=== PATIENT | female | born 1950 | race Caucasian/White ===

== ENCOUNTER 2016-11-12 14:43 | Emergency (ER) | payer OTHER ==
[2016-11-12 14:56] VITALS: TEMP 97.5; BMI 29.1
[2016-11-12] MEDS ORDERED: guaiFENesin/CODEINE 5 ML UNIT-DOSE CUPS PO PRN (17:19)
[2016-11-12] MEDS ORDERED: SODIUM CHLORIDE 1,000 ML IV STA (17:20)
[2016-11-12] MEDS ORDERED: ACETAMINOPHEN 325 MG TABLET (FP) PO ONE (17:20)
--- NOTE | 2016-11-12 17:24 | PDOC ---
[id number] Associated Symptoms: reports: chest pain, cough, fever/chills, headaches, malaise, shortness of breath. denies: nausea/vomiting <D[place]ast[place]Shahla - Last Filed: 11/12/16 18:59> <Sundepe Florence - Last Filed: 11/12/16 20:45> <Licha Pierce - Last Filed: 11/13/16 19:24> - General Chief Complaint: Shortness of Breath Stated Complaint: CHEST PAIN Time Seen by Provider: 11/12/16 16:32 Past History - Past Medical History GI Disorders: Yes (GERD) Hypercholesterolemia: Yes - Surgical History Cholecystectomy: Yes - Psycho/Social/Smoking Cessation Hx Anxiety: No Suicidal Ideation: No Smoking Status: No Smoking History: Never smoked Have you smoked in the past 12 months: No Number of Cigarettes Smoked Daily: 0 Information on smoking cessation initiated: No Hx Alcohol Use: No Drug/Substance Use Hx: No Substance Use Type: None <[place] - Last Filed: 11/12/16 18:59> <Sundeep Florence - Last Filed: 11/12/16 20:45> <Licha Pierce - Last Filed: 11/13/16 19:24> - Past Medical History Allergies/Adverse Reactions: Allergies Allergy/AdvReac Type Severity Reaction Status Date / Time aspirin Allergy Verified 11/12/16 14:53 Home Medications: Ambulatory Orders Acetaminophen [Tylenol] 650 mg PO Q6H #30 tablet 11/12/16 Guaifenesin AC [Robitussin AC] 5 ml PO Q6H #118 ml MDD 45 11/12/16 Lisinopril [Prinivil] 10 mg PO DAILY 11/12/16 Omeprazole 40 mg PO DAILY 11/12/16 Simvastatin 20 mg PO DAILY 11/12/16 Review of Systems - Review of Systems Constitutional: Yes: Chills, Fever, Malaise Respiratory: Yes: Cough, Shortness of Breath. No: Wheezing Cardiac (ROS): Yes: Chest Pain ABD/GI: No: Diarrhea, Nausea, Vomiting : No: Dysuria Neurological: Yes: Headache. No: Dizziness <Shahla Flores Last Filed: 11/12/16 18:59> *Physical Exam - Vital Signs Last Vital Signs Temp Pulse Resp BP Pulse Ox 97.5 F L 95 H 18 132/80 95 11/12/16 14:55 11/12/16 14:55 11/12/16 14:55 11/12/16 14:55 11/12/16 14:55 - Physical Exam General Appearance: Yes: Appropriately Dressed HEENT: positive: Normal ENT Inspection, Normal Voice. negative: Scleral Icterus (R), Scleral Icterus (L) Neck: positive: Supple. negative: Lymphadenopathy (R), Lymphadenopathy (L) Respiratory/Chest: positive: Lungs Clear, Normal Breath Sounds. negative: Respiratory Distress Cardiovascular: positive: Regular Rate, S1, S2 Gastrointestinal/Abdominal: positive: Soft. negative: Tender Integumentary: positive: Dry, Warm Neurologic: positive: Fully Oriented, Alert, Normal Mood/Affect <Shahla Flores - Last Filed: 11/12/16 18:59> - Vital Signs Last Vital Signs Temp Pulse Resp BP Pulse Ox 97.5 F L 95 H 18 132/80 95 11/12/16 14:55 11/12/16 14:55 11/12/16 14:55 11/12/16 14:55 11/12/16 14:55 <Sundeep Florence - Last Filed: 11/12/16 20:45> - Vital Signs Last Vital Signs Temp Pulse Resp BP Pulse Ox 97.5 F L 75 16 130/75 99 11/12/16 14:55 11/12/16 20:51 11/12/16 20:51 11/12/16 20:51 11/12/16 20:51 <Licha Pierce - Last Filed: 11/13/16 19:24> ED Treatment Course - LABORATORY CBC & Chemistry Diagram: 11/12/16 17:14 11/12/16 17:14 - RADIOLOGY Radiology Studies Ordered: Category Date Time Status CHEST X-RAY PORTABLE* [RAD] Stat Radiology 11/12/16 16:36 Taken <Shahla Flores - Last Filed: 11/12/16 18:59> - LABORATORY CBC & Chemistry Diagram: 11/12/16 17:14 11/12/16 17:14 - ADDITIONAL ORDERS Additional order review: Laboratory Results 11/12/16 17:14 Sodium 138 Potassium 3.7 Chloride 102 Carbon Dioxide 26 Anion Gap 10 BUN 14 Creatinine 0.8 Creat Clearance w eGFR > 60 Random Glucose 101 Calcium 7.9 L Total Bilirubin 0.3 D AST 51 H D ALT 45 D Alkaline Phosphatase 84 D Creatine Kinase 136 Troponin I < 0.02 Total Protein 7.6 Albumin 3.8 11/12/16 17:30 Influenza Types A,B Antigen (CHRIS) - Final Nasopharyngeal Swab - Final 11/12/16 17:14 RBC 4.88 MCV 85.4 MCHC 33.6 RDW 13.8 MPV 9.4 Neutrophils % 70.6 Lymphocytes % 18.4 Monocytes % 9.2 Eosinophils % 0.6 Basophils % 1.2 - Medications Given in the ED: ED Medications Discontinued Medications Generic Name Dose Route Start Last Admin Trade Name Freq PRN Reason Stop Dose Admin Acetaminophen 650 mg 11/12/16 17:20 11/12/16 17:41 Tylenol - PO 11/12/16 17:21 650 mg ONCE ONE Administration Sodium Chloride 1,000 mls @ 1,000 mls/hr 11/12/16 17:20 11/12/16 17:41 Normal Saline - IV 11/12/16 18:19 1,000 mls/hr ASDIR STA Administration <Ludivina,Sundeep - Last Filed: 11/12/16 20:45> - LABORATORY CBC & Chemistry Diagram: 11/12/16 17:14 11/12/16 17:14 - ADDITIONAL ORDERS Additional order review: 11/12/16 17:30 Influenza Types A,B Antigen (CHRIS) - Final Nasopharyngeal Swab - Final 11/12/16 17:14 RBC 4.88 MCV 85.4 MCHC 33.6 RDW 13.8 MPV 9.4 Neutrophils % 70.6 Lymphocytes % 18.4 Monocytes % 9.2 Eosinophils % 0.6 Basophils % 1.2 - Medications Given in the ED: ED Medications Discontinued Medications Generic Name Dose Route Start Last Admin Trade Name Freq PRN Reason Stop Dose Admin Acetaminophen 650 mg 11/12/16 17:20 11/12/16 17:41 Tylenol - PO 11/12/16 17:21 650 mg ONCE ONE Administration Guaifenesin/Codeine Phosphate 5 ml 11/12/16 17:19 11/12/16 17:30 Robitussin Ac - PO 5 ml HS PRN Administration COUGH Sodium Chloride 1,000 mls @ 1,000 mls/hr 11/12/16 17:20 11/12/16 17:41 Normal Saline - IV 11/12/16 18:19 1,000 mls/hr ASDIR STA Administration <Licha Pierce - Last Filed: 11/13/16 19:24> Medical Decision Making - Medical Decision Making 11/12/16 17:20 66-year-old female history of hyperlipidemia, GERD, diverticulitis, presenting with malaise with generalized body aches, cough, pleuritic CP, subjective fever and ? shortness of breath 5 days. No hemoptysis, abd pain, dysuria, change in BM or n/v. No recent travel or sick contacts See exam Viral syndrome Stable but ill mireya and actively coughing in ED Rest of exam unremarkable R/o influenza -pain control -anti-tussive -IVF -labs -cxr r/o pna -dispo pending 11/12/16 18:16 Influenza A + on labs, rest of labs/ua/cxr negative as reviewed w/ ED attg. Tamiflu not beneficial at this point given duration of symptoms. Dc w/ supportive tx. Return precautions given 11/12/16 18:43 11/12/16 18:54 11/12/16 18:59 <Shahla Flores - Last Filed: 11/12/16 18:59> *DC/Admit/Observation/Transfer <Shahla Flores - Last Filed: 11/12/16 18:59> <Sundeep Florence - Last Filed: 11/12/16 20:45> - Attestations Physician Attestion: I reviewed the case with the mid-level practitioner and agree with the mid- level practitioner's assessment, diagnosis and disposition. <Licha Pierce - Last Filed: 11/13/16 19:24> Diagnosis at time of Disposition: Influenza A - Discharge Dispostion Disposition: HOME Condition at time of disposition: Stable - Prescriptions Prescriptions: Guaifenesin AC [Robitussin AC] 5 ml PO Q6H #118 ml MDD 45 Acetaminophen [Tylenol] 650 mg PO Q6H #30 tablet - Referrals Referrals: Jonny Shaikh MD [Primary Care Provider] - - Patient Instructions Printed Discharge Instructions: Influenza Additional Instructions: karin Mckeonener la hidratacin adecuada y lenny motrin o tylenol segn sea necesario para el dolor / fiebre Retorno por empeoramiento de los sntomas Print Language: YI
[2016-11-12] MEDS ORDERED: ACETAMINOPHEN 325 MG TABLET (FP) ONE (17:32)
[2016-11-12 17:53] LABS: BASOPHIL 1.2 % (0-2.0); EOSINOPHIL 0.6 % (0-4.5); MCH 28.7 pg (25.7-33.7); MCHC 33.6 g/dl (32.0-36.0); MEAN CELL VOLUME 85.4 fl (80-96); MEAN PLT VOLUME 9.4 fl (7.5-11.1); NEUTROPHILS 70.6 % (42.8-82.8); PLATELET COUNT 177 K/MM3 (134-434); RDW 13.8 % (11.6-15.6); WHITE BLOOD COUNT 5.6 K/mm3 (4.0-10.0)
[2016-11-12 18:15] LABS: ALBUMIN 3.8 g/dl (3.4-5.0); ANION GAP 10 (8-16); BILIRUBIN,TOTAL 0.3 mg/dL (0.2-1.0); CALCIUM 7.9 mg/dL (8.5-10.1); CO2 26 mmol/L (21-32); CREATININE 0.8 mg/dL (0.55-1.02); GLUCOSE,RANDOM 101 mg/dL (74-106); SGOT/AST 51 U/L (15-37); SGPT/ALT 45 U/L (12-78)
[2016-11-12 18:19] LABS: ALK PHOS 84 U/L (45-117); TOT PROT 7.6 g/dl (6.4-8.2); TROPONIN I < 0.02 ng/ml (0.00-0.05)
--- NOTE | 2016-11-12 20:45 | PDOC ---
*Physical Exam - Vital Signs Last Vital Signs Temp Pulse Resp BP Pulse Ox 97.5 F L 95 H 18 132/80 95 11/12/16 14:55 11/12/16 14:55 11/12/16 14:55 11/12/16 14:55 11/12/16 14:55 ED Treatment Course - LABORATORY CBC & Chemistry Diagram: 11/12/16 17:14 11/12/16 17:14 - ADDITIONAL ORDERS Additional order review: Laboratory Results 11/12/16 17:14 Sodium 138 Potassium 3.7 Chloride 102 Carbon Dioxide 26 Anion Gap 10 BUN 14 Creatinine 0.8 Creat Clearance w eGFR > 60 Random Glucose 101 Calcium 7.9 L Total Bilirubin 0.3 D AST 51 H D ALT 45 D Alkaline Phosphatase 84 D Creatine Kinase 136 Troponin I < 0.02 Total Protein 7.6 Albumin 3.8 11/12/16 17:30 Influenza Types A,B Antigen (CHRIS) - Final Nasopharyngeal Swab - Final 11/12/16 17:14 RBC 4.88 MCV 85.4 MCHC 33.6 RDW 13.8 MPV 9.4 Neutrophils % 70.6 Lymphocytes % 18.4 Monocytes % 9.2 Eosinophils % 0.6 Basophils % 1.2 - Medications Given in the ED: ED Medications Discontinued Medications Generic Name Dose Route Start Last Admin Trade Name Freq PRN Reason Stop Dose Admin Acetaminophen 650 mg 11/12/16 17:20 11/12/16 17:41 Tylenol - PO 11/12/16 17:21 650 mg ONCE ONE Administration Sodium Chloride 1,000 mls @ 1,000 mls/hr 11/12/16 17:20 11/12/16 17:41 Normal Saline - IV 11/12/16 18:19 1,000 mls/hr ASDIR STA Administration *DC/Admit/Observation/Transfer Diagnosis at time of Disposition: Influenza A - Discharge Dispostion Disposition: HOME Condition at time of disposition: Stable - Prescriptions Prescriptions: Guaifenesin AC [Robitussin AC] 5 ml PO Q6H #118 ml MDD 45 Acetaminophen [Tylenol] 650 mg PO Q6H #30 tablet - Referrals Referrals: Jonny Shaikh MD [Primary Care Provider] - - Patient Instructions Printed Discharge Instructions: Influenza Additional Instructions: Descansar, mantener la hidratacin adecuada y lenny motrin o tylenol segn sea necesario para el dolor / fiebre Retorno por empeoramiento de los sntomas Print Language: PERSIAN - Post Discharge Activity
[2016-11-12 20:52] VITALS: BP 130/75; PULSE 75
--- NOTE | 2016-11-14 23:45 | EKG ---
Test Reason : Blood Pressure : / mmHG Vent. Rate : 074 BPM Atrial Rate : 074 BPM P-R Int : 138 ms QRS Dur : 074 ms QT Int : 404 ms P-R-T Axes : 045 -38 020 degrees QTc Int : 448 ms NORMAL SINUS RHYTHM LEFT AXIS DEVIATION MODERATE VOLTAGE CRITERIA FOR LVH, MAY BE NORMAL VARIANT NONSPECIFIC ST AND T WAVE ABNORMALITY ABNORMAL ECG WHEN COMPARED WITH ECG OF 12-NOV-2016 14:57, T WAVE VARIATION Confirmed by PAYTON AMEZQUITA, OLIVA ([id number]) on 11/14/2016 11:44:59 PM Referred By: Confirmed By:OLIVA CAIN MD
--- NOTE | 2016-11-15 12:49 | EKG ---
Test Reason : Blood Pressure : / mmHG Vent. Rate : 090 BPM Atrial Rate : 090 BPM P-R Int : 118 ms QRS Dur : 070 ms QT Int : 368 ms P-R-T Axes : 017 -39 -08 degrees QTc Int : 450 ms NORMAL SINUS RHYTHM LEFT AXIS DEVIATION MODERATE VOLTAGE CRITERIA FOR LVH, MAY BE NORMAL VARIANT NONSPECIFIC ST AND T WAVE ABNORMALITY ABNORMAL ECG WHEN COMPARED WITH ECG OF 12-NOV-2012 12:19, NO SIGNIFICANT CHANGE WAS FOUND Confirmed by OLIVA CAIN MD ([id number]) on 11/15/2016 12:49:17 PM Referred By: Confirmed By:OLIVA CAIN MD
== END 2016-11-12 20:54 | disposition home or self-care (01) ==
LOC: JER 14:43
PROC: 3E0337Z Introduction of Electrolytic and Water Balance Substance into Peripheral Vein, Percutaneous Approach (ICD-10-PCS; principal; 2016-11-12)
DX: J09.X2 Influenza due to identified novel influenza A virus with other respiratory manifestations (principal); K21.9 Gastro-esophageal reflux disease without esophagitis; E78.00 Pure hypercholesterolemia, unspecified
CPT/HCPCS: 36415; 71010-TC; 80053; 82550; 84484; 85025; 87804; 93005; 93010; 96360; 99285-25

== ENCOUNTER 2017-07-06 15:13 | Emergency (ER) | payer OTHER ==
[2017-07-06 15:25] VITALS: BP 127/82; PULSE 78; TEMP 98.5; BMI 33.1
--- NOTE | 2017-07-06 16:10 | PDOC ---
History of Present Illness - General Chief Complaint: Pain Stated Complaint: RT KNEE PAIN Time Seen by Provider: 07/06/17 15:37 History Source: Patient Exam Limitations: No Limitations - History of Present Illness Initial Comments: 07/06/17 16:04 CHIEF COMPLAINT: Right medial knee pain. HISTORY OF PRESENT ILLNESS: Patient is a 67-year-old female history of pulmonary fibrosis and high cholesterol presents emergency Department with right knee pain status post fall 3 weeks ago. Patient states she has generalized knee pain concentrated more on medial knee. There is no deformity, no erythema edema or instability patient to ambulate without difficulty. REVIEW OF SYSTEMS: GENERAL: Afebrile, A&O x3 RESPIRATORY: No cough, wheezing, or hemoptysis. CARDIAC: No CP or SOB MUSCULOSKELETAL: Pain to right anterior knee SKIN : No erythema, no edema, no bruising, no deformity. NEUROLOGICAL: Denies any numbness or tingling. PHYSICAL EXAM: GENERAL: The patient is awake, alert, and fully oriented, in no acute distress. HEAD: Normal with no signs of trauma. RESPIRATORY: Lungs clear bilaterally no rhonchi, rales, or wheezes CARDIAC: S1-S2 audible, no murmur rub or gallop EXTREMITIES: Good range of motion to right knee with associated pain., no fluid appreciated, no bulge sign. No pain to superior or inferior patella. Negative drop test. Negative posterior leg test. No joint laxity noted, no ecchymosis, no deformity, no abrasions ,no edema. +3 popliteal pulse. Negative Homans sign. No calf pain or tenderness, no erythema or edema. MUSCULOSKELETAL: No spinal point tenderness. SKIN: Warm, Dry, normal turgor, no erythema, no edema no bruising. Past History - Past Medical History Allergies/Adverse Reactions: Allergies Allergy/AdvReac Type Severity Reaction Status Date / Time aspirin Allergy Verified 07/06/17 15:25 Home Medications: Ambulatory Orders Acetaminophen [Tylenol] 650 mg PO Q6H #30 tablet 11/12/16 Lisinopril [Prinivil] 10 mg PO DAILY 11/12/16 Omeprazole 40 mg PO DAILY 11/12/16 Simvastatin 20 mg PO DAILY 11/12/16 GI Disorders: Yes (GERD) Hypercholesterolemia: Yes - Surgical History Cholecystectomy: Yes - Psycho/Social/Smoking Cessation Hx Anxiety: No Suicidal Ideation: No Smoking Status: No Smoking History: Never smoked Have you smoked in the past 12 months: No Number of Cigarettes Smoked Daily: 0 Information on smoking cessation initiated: No Hx Alcohol Use: No Drug/Substance Use Hx: No Substance Use Type: None *Physical Exam - Vital Signs Last Vital Signs Temp Pulse Resp BP Pulse Ox 98.5 F 78 18 127/82 98 07/06/17 15:16 07/06/17 15:16 07/06/17 15:16 07/06/17 15:16 07/06/17 15:16 ED Treatment Course - RADIOLOGY Radiology Studies Ordered: Category Date Time Status KNEE 3 POS-RIGHT [RAD] Stat Radiology 07/06/17 15:37 Taken Medical Decision Making - Medical Decision Making 07/06/17 16:08 A/P: Patient here for evaluation of right knee pain status post fall 3 weeks ago. Patient able to ambulate with a limp there is no visible deformity. Patient sent to x-ray for evaluation there is no identifiable fracture on wet read of x-ray significant arthritic changes. 07/06/17 16:52 X-ray official reading by Dr. Rucker demonstrated DJD otherwise unremarkable with no acute fracture. Will place patient in knee immobilizer. Follow-up with orthopedics. Tylenol for pain. I discussed the physical exam findings, ancillary test results and final diagnoses with the patient. I answered all of the patient's questions. The patient was satisfied with the care received and felt comfortable with the discharge plan and treatment plan. The patient will call to arrange follow-up and will return to the Emergency Department with any new, persistent or worsening symptoms. *DC/Admit/Observation/Transfer Diagnosis at time of Disposition: Degenerative joint disease of knee, right Qualifiers: Osteoarthritis type: unspecified Qualified Code(s): M17.11 - Unilateral primary osteoarthritis, right knee - Discharge Dispostion Disposition: HOME Condition at time of disposition: Good Admit: No - Referrals Referrals: Zander Talamantes MD [Staff Physician] - Esteban Uriostegui MD [Staff Physician] - - Patient Instructions Printed Discharge Instructions: DI for Knee Pain, How to Use a Knee Immobilizer Additional Instructions: 1. Please return to the emergency department with any redness, swelling, increased pain, or any other concerns. 2. Keep knee immobilizer on until follow up. 3. Please follow up in the office of orthopedic within a week if pain persists. 4. No weightbearing 5. Ice and elevate when at rest. 6. Motrin for pain Print Language: PRYDEINIG - Post Discharge Activity
== END 2017-07-06 16:59 | disposition home or self-care (01) ==
LOC: JERFT 15:13
DX: M25.561 Pain in right knee (principal); M17.11 Unilateral primary osteoarthritis, right knee; E78.00 Pure hypercholesterolemia, unspecified; K21.9 Gastro-esophageal reflux disease without esophagitis; J84.10 Pulmonary fibrosis, unspecified
CPT/HCPCS: 73562-TC-RT; 99281-25

== ENCOUNTER 2018-03-26 21:01 | Inpatient (IN) | payer OTHER ==
--- NOTE | 2018-03-26 21:13 | PDOC ---
History of Present Illness - General Chief Complaint: Shortness of Breath Stated Complaint: FEVER Time Seen by Provider: 03/26/18 21:10 - History of Present Illness Initial Comments: 03/26/18 21:11 68 yo F with h/o pulmonary fibrosis, HTN, HLD, who p/w SOB. Pt. with increased SOB, and acute onset subjective fevers at home. Endorses worsening SOB this evening and pleuritc, retrosternal, chest pain beginning 03/11. Also endorses non productive cough. Sleeps with 3 pillows at night. + non bloody N/V ( now resolved). Denies leg swelling/pain, palpitations, PND, diaphoresis, abdominal pain, diarrhea, constipation, urinary complaints, weakness, lightheadedness, sensory changes. PMHx: as noted above. Denies ACS/NH, abnml stress testing, PE/DVT, malignancy. Daily home duoneb use. ROS: as noted above SHx: Denies Etoh, tobacco, IVDA. Recent flight/ returned from [place] 1 week ago. Denies recent trauma or surgery. Allergies: ASA. Past History - Past Medical History Allergies/Adverse Reactions: Allergies Allergy/AdvReac Type Severity Reaction Status Date / Time aspirin Allergy Verified 07/06/17 15:25 Home Medications: Ambulatory Orders Acetaminophen [Tylenol] 650 mg PO Q6H #30 tablet 11/12/16 Lisinopril [Prinivil] 10 mg PO DAILY 11/12/16 Omeprazole 40 mg PO DAILY 11/12/16 Simvastatin 20 mg PO DAILY 11/12/16 GI Disorders: Yes (GERD) Hypercholesterolemia: Yes - Surgical History Cholecystectomy: Yes - Suicide/Smoking/Psychosocial Hx Smoking Status: No Smoking History: Never smoked Have you smoked in the past 12 months: No Number of Cigarettes Smoked Daily: 0 Hx Alcohol Use: No Drug/Substance Use Hx: No Substance Use Type: None Review of Systems - Review of Systems Comments:: 03/26/18 21:12 GENERAL/CONSTITUTIONAL: + fever and chills. No weakness. HEAD, EYES, EARS, NOSE AND THROAT: No change in vision. No ear pain or discharge. No sore throat. CARDIOVASCULAR: + chest pain and shortness of breath RESPIRATORY: + cough. No wheezing, or hemoptysis. GASTROINTESTINAL: + nausea, and vomiting. No diarrhea or constipation. GENITOURINARY: No dysuria, frequency, or change in urination. MUSCULOSKELETAL: No joint or muscle swelling or pain. No neck or back pain. SKIN: No rash NEUROLOGIC: No headache, vertigo, loss of consciousness, or change in strength/ sensation. ENDOCRINE: No increased thirst. No abnormal weight change HEMATOLOGIC/LYMPHATIC: No anemia, easy bleeding, or history of blood clots. ALLERGIC/IMMUNOLOGIC: No hives or skin allergy. *Physical Exam - Physical Exam Comments: 03/26/18 21:13 GENERAL: Awake, alert, and fully oriented, in no acute distress HEAD: No signs of trauma, normocephalic, atraumatic EYES: PERRLA, EOMI, sclera anicteric, conjunctiva clear ENT: Auricles normal inspection, hearing grossly normal, nares patent, oropharynx clear without exudates. Moist mucosa NECK: Normal ROM, supple, no lymphadenopathy, JVD, or masses LUNGS: Coarse lung sounds throuhgout, with rales at BL lung bases. Slight exp rhonci. HEART: Regular rate and rhythm, normal S1 and S2, no murmurs, rubs or gallops, peripheral pulses normal and equal bilaterally. ABDOMEN: Soft, nontender, normoactive bowel sounds. No guarding, no rebound. No masses EXTREMITIES : Normal inspection, Normal range of motion, no edema. No clubbing or cyanosis. NEUROLOGICAL: Cranial nerves II through XII grossly intact. Normal speech, normal gait, no focal sensorimotor deficits SKIN: Warm, Dry, normal turgor, no rashes or lesions noted ED Treatment Course - LABORATORY CBC & Chemistry Diagram: 03/26/18 21:35 03/26/18 21:35 Medical Decision Making - Medical Decision Making 03/26/18 21:35 68 yo F with h/o pulmonary fibrosis, HTN, HLD, who p/w SOB, and subjective fevers. 3/4 SIRS criteria. HR 101, RR 30, O2 89 RA, AF, A&Ox3. ACS/NH r/o Will evaluate for PNA. Mod risk PE based on Weils criteria. Low suspicion of AAA, Ao dissection. ED Course: CBC, CMP, Cardiac, LA, Blood Cx Urine Cx, Urine CXR, EKG 03/26/18 22:39 Temp 100.5 Oral temp. 03/26/18 23:20 WBC: 11.2 03/26/18 23:21 CXR: Congestive changes with questionable left base infiltrate. 03/26/18 23:49 Patient admitted to inpatient medicine Dr. Dean. CT CHEST W/IV CON pending. *DC/Admit/Observation/Transfer Diagnosis at time of Disposition: PNA (pneumonia) Qualifiers: Pneumonia type: due to unspecified organism Laterality: left Lung location: lower lobe of lung Qualified Code(s): J18.1 - Lobar pneumonia, unspecified organism - Discharge Dispostion Decision to Admit order: Yes - Referrals - Patient Instructions - Post Discharge Activity
[2018-03-26 21:48] LABS: BASO % 0.6 % (0-2.0); EOS % 0.4 % (0-4.5); HEMATOCRIT 40.4 % (32.4-45.2); HEMOGLOBIN 13.5 GM/dL (10.7-15.3); MCH 28.4 pg (25.7-33.7); MCHC 33.4 g/dl (32.0-36.0); MEAN PLT VOLUME 9.2 fl (7.5-11.1); MONO % 3.1 % (3.8-10.2); NEUT % 87.9 % (42.8-82.8); PLATELET COUNT 283 K/MM3 (134-434); RBC 4.75 M/mm3 (3.60-5.2); RDW 13.9 % (11.6-15.6); WHITE BLOOD COUNT 11.2 K/mm3 (4.0-10.0)
[2018-03-26 22:01] LABS: INR 1.17 (0.82-1.09); PROTHROMBIN TIME (PATIENT) 13.2 SEC (9.7-13.0)
[2018-03-26 22:04] LABS: ACTIVATED PTT 27.2 SECONDS (26.9-34.4)
[2018-03-26 22:11] LABS: ALBUMIN 3.2 g/dl (3.4-5.0); ALK PHOS 302 U/L (45-117); ANION GAP 14 (8-16); BILIRUBIN,TOTAL 0.8 mg/dL (0.2-1.0); BLOOD UREA NITROGEN 12 mg/dL (7-18); CALCIUM 8.3 mg/dL (8.5-10.1); CHLORIDE 103 mmol/L (98-107); CO2 21 mmol/L (21-32); CREATININE 0.9 mg/dL (0.55-1.02); GLUCOSE,RANDOM 103 mg/dL (74-106); POTASSIUM 3.5 mmol/L (3.5-5.1); SGOT/AST 94 U/L (15-37); SGPT/ALT 94 U/L (12-78); SODIUM 138 mmol/L (136-145); TOT PROT 7.7 g/dl (6.4-8.2)
[2018-03-26 22:21] LABS: PLATELET ESTIMATE ADEQUATE
[2018-03-26 22:25] LABS: URINE APPEARANCE CLEAR; URINE BILIRUBIN NEGATIVE (<2.0 mg/dL); URINE BLOOD NEGATIVE (NEGATIVE); URINE COLOR AMBER; URINE GLUCOSE (UA) NEGATIVE (NEGATIVE); URINE KETONE 2+ (NEGATIVE); URINE LEUK ESTERASE TRACE (NEGATIVE); URINE NITRITE NEGATIVE (NEGATIVE); URINE UROBILINOGEN 4.0 E.U/dl mg/dL (0.2-1.0)
[2018-03-26 22:26] LABS: URINE PROTEIN 2+ (NEGATIVE)
[2018-03-26 22:28] LABS: EPI CELLS RARE /HPF (FEW); URINE HYALINE CAST 2 /lpf; URINE MUCUS MODERATE
[2018-03-26] MEDS ORDERED: ACETAMINOPHEN 500 MG TABLET (FP) PO STA (22:37)
[2018-03-26] MEDS ORDERED: ACETAMINOPHEN 325 MG TABLET (FP) ONE (22:46)
[2018-03-26] MEDS ORDERED: AZITHROMYCIN IVPB 500 MG in DEXTROSE 5%-WATER - 250 ML IVPB ONE (23:30)
[2018-03-26] MEDS ORDERED: AZITHROMYCIN IVPB 250 ML IVPB ONE (23:41)
[2018-03-26] MEDS ORDERED: cefTRIAXone SODIUM 1 GM VIAL ONE (23:41)
[2018-03-26] MEDS ORDERED: ALBUTEROL SO4 2.5/IPRATROPIUM 0.5 INH SOL 3 ML VIAL.NEB. NEB ONE (23:48)
--- NOTE | 2018-03-27 00:01 | HP ---
CHIEF COMPLAINT: SOB PCP: HISTORY OF PRESENT ILLNESS: 68 yr old Bengali speaking woman with pulmonary fibrosis(never smoker), thyroid nodule, HTN, HLD, presents with cough, fevers and increased shortness of breath for past few days. worsening symptoms today associated with substernal chest pain, worse with inspiration/cough. Denies palpitations, abdominal pain, diarrhea, constipation, dysuria, weakness, lightheadedness. denies hx of liver disease, recent etoh use. has been on prednisone 10mg daily for past 2 yrs. ER course was notable for: (1) chest cxry, chest CT w.con (2) (3) Recent Travel: recently returned from [place] 2-3 weeks ago PAST MEDICAL HISTORY: hx of AR x1: 3 yrs ago HLD pulmonary fibrosis PAST SURGICAL HISTORY: Cholecystectomy 2003 thyroid nodule removal 2-3 yrs ago Social History: Smoking: never Alcohol: denies Drugs: denies Family History: mother and brother with DM and HTN, older sister with stroke at age 57 and older sister with stroke age 70's. Has 5 children. Allergies aspirin Allergy (Verified 07/06/17 15:25) HOME MEDICATIONS: Home Medications Medication Instructions Recorded Acetaminophen [Tylenol] 650 mg PO Q6H #30 tablet 11/12/16 Lisinopril [Prinivil] 10 mg PO DAILY 11/12/16 Omeprazole 40 mg PO DAILY 11/12/16 Simvastatin 20 mg PO DAILY 11/12/16 REVIEW OF SYSTEMS CONSTITUTIONAL: Present:fever Absent:chills, diaphoresis, generalized weakness, malaise, loss of appetite, weight change HEENT: Absent: rhinorrhea, nasal congestion, throat pain, throat swelling, difficulty swallowing, mouth swelling, ear pain, eye pain, visual changes CARDIOVASCULAR: Present: chest pain, Absent: syncope, palpitations, irregular heart rate, lightheadedness, peripheral edema RESPIRATORY: Present:cough, shortness of breath,orthopnea, Absent: dyspnea with exertion, wheezing, stridor, hemoptysis GASTROINTESTINAL: Absent: abdominal pain, abdominal distension, nausea, vomiting, diarrhea, constipation, melena, hematochezia GENITOURINARY: Absent: dysuria, frequency, urgency, hesitancy, hematuria, flank pain, genital pain MUSCULOSKELETAL: Absent: myalgia, arthralgia, joint swelling, back pain, neck pain SKIN: Absent: rash, itching, pallor HEMATOLOGIC/IMMUNOLOGIC: Absent: easy bleeding, easy bruising, lymphadenopathy, frequent infections ENDOCRINE: Absent: unexplained weight gain, unexplained weight loss, heat intolerance, cold intolerance NEUROLOGIC: Absent: headache, focal weakness or paresthesias, dizziness, unsteady gait, seizure, mental status changes, bladder or bowel incontinence PHYSICAL EXAMINATION Vital Signs - 24 hr 03/26/18 21:10 Temperature 98.8 F Pulse Rate 101 H Respiratory 30 H Rate Blood Pressure 128/67 O2 Sat by Pulse 89 L Oximetry (%) GENERAL: Awake, alert, and fully oriented, in no acute distress. HEAD: Normal with no signs of trauma. EYES: Pupils equal, round and reactive to light, extraocular movements intact, sclera anicteric, conjunctiva clear. No lid lag. injected conjunctiva EARS, NOSE, THROAT: nares patent, oropharynx clear without exudates. Moist mucous membranes. no thrush NECK: Normal range of motion, supple without lymphadenopathy, JVD, or masses. no stridor, no bruits LUNGS: +wheezing anterior apices, +crackles/rhonchi b/l throughout posteriorly HEART: Regular rate and rhythm, normal S1 and S2 without murmur, rub or gallop. ABDOMEN: Soft, nontender, not distended, normoactive bowel sounds, no guarding, no rebound, no masses. No hepatomegaly or splenomegaly. MUSCULOSKELETAL: Normal range of motion at all joints. No bony deformities or tenderness. No CVA tenderness. UPPER EXTREMITIES: 2+ radial pulses, warm, well-perfused. No cyanosis. No clubbing. No peripheral edema. LOWER EXTREMITIES: 2+ DP pulses, warm, well-perfused. No calf tenderness. No peripheral edema. mild clubbing visible on toes. NEUROLOGICAL: Cranial nerves II-XII intact. Normal speech. facial symmetry PSYCHIATRIC: Cooperative. Good eye contact. Appropriate mood and affect. SKIN: Warm, dry, normal turgor, no rashes or lesions noted, normal capillary refill. no jaundice Laboratory Results - last 24 hr 03/26/18 03/26/18 03/26/18 21:30 21:35 21:35 WBC 11.2 H D RBC 4.75 Hgb 13.5 Hct 40.4 MCV 85.0 MCH 28.4 MCHC 33.4 RDW 13.9 Plt Count 283 D MPV 9.2 Total Counted 100 Neutrophils % 87.9 H D Neutrophils % (Manual) 76.0 Band Neutrophils % 9.0 Lymphocytes % 8.0 D Lymphocytes % (Manual) 9.0 Monocytes % 3.1 L Monocytes % (Manual) 5 Eosinophils % 0.4 Basophils % 0.6 Basophils % (Manual) 1.0 Nucleated RBC % 0 Platelet Estimate Adequate PT with INR 13.20 H INR 1.17 H PTT (Actin FS) 27.2 Sodium Potassium Chloride Carbon Dioxide Anion Gap BUN Creatinine Creat Clearance w eGFR Random Glucose Lactic Acid 1.4 Calcium Total Bilirubin AST ALT Alkaline Phosphatase Troponin I Total Protein Albumin Urine Color Urine Appearance Urine pH Ur Specific Keymar Urine Protein Urine Glucose (UA) Urine Ketones Urine Blood Urine Nitrite Urine Bilirubin Urine Urobilinogen Ur Leukocyte Esterase Urine WBC (Auto) Urine RBC (Auto) Ur Epithelial Cells Hyaline Casts Urine Mucus 03/26/18 03/26/18 03/26/18 21:35 21:35 22:20 WBC RBC Hgb Hct MCV MCH MCHC RDW Plt Count MPV Total Counted Neutrophils % Neutrophils % (Manual) Band Neutrophils % Lymphocytes % Lymphocytes % (Manual) Monocytes % Monocytes % (Manual) Eosinophils % Basophils % Basophils % (Manual) Nucleated RBC % Platelet Estimate PT with INR INR PTT (Actin FS) Sodium 138 Potassium 3.5 Chloride 103 Carbon Dioxide 21 Anion Gap 14 BUN 12 Creatinine 0.9 Creat Clearance w eGFR > 60 Random Glucose 103 Lactic Acid Calcium 8.3 L Total Bilirubin 0.8 D AST 94 H ALT 94 H Alkaline Phosphatase 302 H Troponin I < 0.02 Total Protein 7.7 Albumin 3.2 L Urine Color Idania Urine Appearance Clear Urine pH 5.0 Ur Specific Keymar 1.028 Urine Protein 2+ H Urine Glucose (UA) Negative Urine Ketones 2+ H Urine Blood Negative Urine Nitrite Negative Urine Bilirubin Negative Urine Urobilinogen 4.0 e.u/dl H Ur Leukocyte Esterase Trace Urine WBC (Auto) 12 Urine RBC (Auto) 1 Ur Epithelial Cells Rare Hyaline Casts 2 Urine Mucus Moderate ASSESSMENT/PLAN: 68 yr old woman with pulmonary fibrosis, presents with SOB with leucocytosis and low grade fever likely from community-pna vs respiratory distress secondary to pulmonary fibrosis #SOB likely exacerbation Acute on chronic lung disease vs community acquired pna - continue rocephin 1gm ivpb q24hr, continue azithromycin 250 ivpb q2hr --started 03/26 - Chest CT with contrast to further evaluated effusion/interstitial tissue/ fibrosis - echo to evaluate for cardiac dysfunction given elevated BNP - steroids 40 IVPUSH daily (with GI prophylaxis with omeprazole) - pulm consult - duonebs Q4hr bartolo - not currently on home oxygen, may need pre/post tomorrow if symptoms do not improve #hx of thyroid nodule, thyroid dysfunction - check TSH, not currently on medications #Transaminitis - unclear etiology, r.o viral hepatitis, repeat hepatic function panel - though remote, ddx includes Alpha-1 antitrypsin deficiency(given pulm and hepatic involvement), liver cirrhosis a.w IPF, SE of statin use - check liver u/s - hold statin #DVT: heparin TID #Diet: regular diet #Activity: oob w. assitance, early ambulation #pt consented to HIV testing, testing ordered Visit type - Emergency Visit Emergency Visit: Yes ED Registration Date: 03/27/18 Care time: The patient presented to the Emergency Department on the above date and was hospitalized for further evaluation of their emergent condition. - New Patient This patient is new to me today: Yes Date on this admission: 03/27/18 - Critical Care Critical Care patient: No Hospitalist Screening - Colonoscopy Questionnaire Colonoscopy Questionnaire: Colonoscopy Questionnaire - Patient: 50 - 75 years old and never had a screening colonoscopy: Unknown History of colon or rectal polyps, or CA: Unknown History of IBD, Crohn's disease or UC: Unknown History of abdominal radiation therapy as a child: Unknown - Relative: 1 with colon or rectal CA, or polyps at age 60 or younger: Unknown Colon or rectal CA diagnosed at age 45 or younger: Unknown Multiple relatives with colon or rectal CA: Unknown - Outcome: Screening Result: Negative Screen
--- NOTE | 2018-03-27 00:21 | PDOC ---
Attending Attestation - Resident Resident Name: Chivo Rodriguez - ED Attending Attestation I have performed the following: I have examined & evaluated the patient, The case was reviewed & discussed with the resident, I agree w/resident's findings & plan, Exceptions are as noted - HPI HPI: 03/27/18 00:20 68 yo female p/w fever and cough - Physicial Exam PE: 03/27/18 00:21 68 yo female w production cough head ncat neck supple lungs ++crackles cvs tachycardia abd soft,nontender ext no edema neuro axox3,no gross focal neuro deficits skin warm and dry psych appropriate 03/27/18 00:33 - Medical Decision Making 03/27/18 00:35 pt is hypoxic ,febrile with infiltrates on her cxr, BC sent, rocephin and azithromax given pt admitted to med/surg
[2018-03-27] MEDS ORDERED: methylPREDNISolone NA SUCC 40 MG/1 ML VIAL IVPUSH SCH ×2 (01:30→10:00)
--- NOTE | 2018-03-27 01:30 | PN ---
Teaching Attending Note Name of Resident: Artis Rudolph ATTENDING PHYSICIAN STATEMENT I saw and evaluated the patient. I reviewed the resident's note and discussed the case with the resident. I agree with the resident's findings and plan as documented. SUBJECTIVE:68 y/o Telugu speaking Patient c/o sob and chest pain secondary to cough with fever. PMH: IPF, and thyroid nodule. Elevated LFTs on prior visit with no reported history of liver d/o. OBJECTIVE: A&Ox3 in mild distress Injected conjunctiva Lungs: b/l crepitation and rhonchi CVS: RRR, S1, S2 Abd Soft , NT, ND, BS+ Ext: slight clubbing LE digits and no edema Neuro: Cn2-12 intact CBCD WBC 11.2 K/mm3 (4.0-10.0) H D 03/26/18 21:35 RBC 4.75 M/mm3 (3.60-5.2) 03/26/18 21:35 Hgb 13.5 GM/dL (10.7-15.3) 03/26/18 21:35 Hct 40.4 % (32.4-45.2) 03/26/18 21:35 MCV 85.0 fl (80-96) 03/26/18 21:35 MCHC 33.4 g/dl (32.0-36.0) 03/26/18 21:35 RDW 13.9 % (11.6-15.6) 03/26/18 21:35 Plt Count 283 K/MM3 (134-434) D 03/26/18 21:35 MPV 9.2 fl (7.5-11.1) 03/26/18 21:35 CMP Sodium 138 mmol/L (136-145) 03/26/18 21:35 Potassium 3.5 mmol/L (3.5-5.1) 03/26/18 21:35 Chloride 103 mmol/L (98-107) 03/26/18 21:35 Carbon Dioxide 21 mmol/L (21-32) 03/26/18 21:35 Anion Gap 14 (8-16) 03/26/18 21:35 BUN 12 mg/dL (7-18) 03/26/18 21:35 Creatinine 0.9 mg/dL (0.55-1.02) 03/26/18 21:35 Creat Clearance w eGFR > 60 (>60) 03/26/18 21:35 Calcium 8.3 mg/dL (8.5-10.1) L 03/26/18 21:35 Total Bilirubin 0.8 mg/dL (0.2-1.0) D 03/26/18 21:35 AST 94 U/L (15-37) H 03/26/18 21:35 ALT 94 U/L (12-78) H 03/26/18 21:35 Alkaline Phosphatase 302 U/L (45-117) H 03/26/18 21:35 Total Protein 7.7 g/dl (6.4-8.2) 03/26/18 21:35 Albumin 3.2 g/dl (3.4-5.0) L 03/26/18 21:35 ASSESSMENT AND PLAN: Admit for IPF flare secondary to CAP with abnormal LFTS. Azithro and CeftriaXONE nebs q4h Prednisone 40 mg daily Tylenol prn Hepatitis panel TSH, FT4, FT3 CT chest with contrast Liver usg Pulmonary consult DVT prophylaxis
[2018-03-27] MEDS ORDERED: HEPARIN NA (PORCINE) 5,000 UNITS/ML 1ML VIAL SQ SCH (02:00)
[2018-03-27] MEDS: HEPARIN NA (PORCINE) 5,000 UNITS/ML 1ML VIAL SQ SCH ×3 (06:00→21:39)
[2018-03-27 07:30] LABS: BASO % 0.5 % (0-2.0); EOS % 0.4 % (0-4.5); HEMATOCRIT 34.2 % (32.4-45.2); HEMOGLOBIN 11.7 GM/dL (10.7-15.3); MCH 29.2 pg (25.7-33.7); MCHC 34.1 g/dl (32.0-36.0); MEAN CELL VOLUME 85.5 fl (80-96); MEAN PLT VOLUME 9.3 fl (7.5-11.1); MONO % 8.4 % (3.8-10.2); NEUT % 73.7 % (42.8-82.8); PLATELET COUNT 230 K/MM3 (134-434); RBC 4.01 M/mm3 (3.60-5.2); RDW 14.1 % (11.6-15.6); WHITE BLOOD COUNT 9.5 K/mm3 (4.0-10.0)
[2018-03-27 07:54] LABS: CHLORIDE 102 mmol/L (98-107); SODIUM 137 mmol/L (136-145)
[2018-03-27 08:02] LABS: ANION GAP 9 (8-16); BLOOD UREA NITROGEN 13 mg/dL (7-18); CALCIUM 7.7 mg/dL (8.5-10.1); CO2 26 mmol/L (21-32); CREATININE 0.9 mg/dL (0.55-1.02); GLUCOSE,RANDOM 97 mg/dL (74-106); MAGNESIUM 2.4 mg/dL (1.8-2.4); PHOSPHOROUS 3.8 mg/dL (2.5-4.9)
[2018-03-27] MEDS ORDERED: PT OWN MED DRAWER 7, Y5N ONE (08:53)
[2018-03-27] MEDS: PANTOPRAZOLE 40 MG TABLET (FP) PO SCH (10:17)
[2018-03-27] MEDS: LISINOPRIL 10 MG TABLET (FP) PO SCH (10:17)
[2018-03-27 10:35] LABS: ALBUMIN 2.7 g/dl (3.4-5.0); ALK PHOS 254 U/L (45-117); BILIRUBIN,DIRECT 0.3 mg/dL (0.0-0.2); BILIRUBIN,TOTAL 0.5 mg/dL (0.2-1.0); SGOT/AST 69 U/L (15-37); SGPT/ALT 79 U/L (12-78); TOT PROT 6.8 g/dl (6.4-8.2)
--- NOTE | 2018-03-27 10:42 | HOSP ---
Subjective - Review of Symptoms Subjective: Pt seen and examined. States her resp status is better than when she came in, she can breath. Denies fever, chills. Physical Examination Vital Signs: Vital Signs Temperature 98.5 F 03/27/18 05:45 Pulse Rate 74 03/27/18 05:45 Respiratory Rate 20 03/27/18 05:45 Blood Pressure 108/63 03/27/18 05:45 O2 Sat by Pulse Oximetry (%) 96 03/27/18 01:42 Constitutional: Yes: Calm Eyes: Yes: Conjunctiva Clear Cardiovascular: Yes: Regular Rate and Rhythm, S1, S2 Respiratory: Yes: On Nasal O2, Rales, Rhonchi Gastrointestinal: Yes: Normal Bowel Sounds, Soft Edema: No Neurological: Yes: Alert, Oriented, Cran Nerves II-XII Intact Labs: CBC, BMP 03/27/18 06:20 03/27/18 06:20 Hospitalist Encounter Assessment: Assessment: 68 year old female with pmhx of pulmonary fibrosis (non smoker), thyroid nodule, HTN, HLD, presented with increased SOB, cough, fever with associated sub sternal cp. Plan: 1. Acute hypoxemia, interstitial pulmonary fibrosis flare, community acquired pna - Increase medrol 40mg q8hr - Continue ceftriaxone, azithro - Duo nebs - CT chest - Maintain supplemental o2 >92% - Protonix daily - Pulm consulted 2. Pulmonary fibrosis - Predinose 10mg daily for 2 years 3. Elevated LFTs - down trending - HIV neg - Will monitor 4. HTN - Lisinopril 10mg daily 5. DVT ppx - Heparin sq today, lovenox toom
[2018-03-27] MEDS: ALBUTEROL SO4 2.5/IPRATROPIUM 0.5 INH SOL 3 ML VIAL.NEB. NEB SCH ×3 (10:44→21:21)
[2018-03-27] MEDS ORDERED: methylPREDNISolone NA SUCC 125 MG/2 ML VIAL IVPB SCH (10:45)
--- NOTE | 2018-03-27 11:22 | EKG ---
Test Reason : Blood Pressure : / mmHG Vent. Rate : 084 BPM Atrial Rate : 084 BPM P-R Int : 124 ms QRS Dur : 070 ms QT Int : 400 ms P-R-T Axes : 031 -28 -22 degrees QTc Int : 472 ms NORMAL SINUS RHYTHM MINIMAL VOLTAGE CRITERIA FOR LVH, MAY BE NORMAL VARIANT NONSPECIFIC ST AND T WAVE ABNORMALITY ABNORMAL ECG WHEN COMPARED WITH ECG OF 12-NOV-2016 20:17, T WAVE VARIATION Confirmed by PAYTON AMEZQUITA, OLIVA ([id number]) on 03/27/2018 11:21:40 AM Referred By: Confirmed By:OLIVA CAIN MD
[2018-03-27 12:13] LABS: N-TERMINAL BNP 311.64 pg/ml (5-125)
--- NOTE | 2018-03-27 16:08 | PN ---
Progress Note (short form) - Note Progress Note: PULMONARY CONSULTATION DICTATED 03/27/18 IMP ACUTE HYPOXEMIC RESPIRATORY FAILURE ADVANCED INTERSTITIAL LUNG DISEASE/PULMONARY FIBROSIS LIKELY URI,? PNEUMONIA HTN HLD ARTHRITIS PLAN ABX STEROIDS INHALED BRONCHODILATORS SUPPLEMENTAL O2 CULTURES F/U CHEST X-RAYS CHECK PRE-AND POST EXERCISE ON RA PRIOR TO DISCHARGE TO DETERMINE IF PT IS A CANDIDATE FOR HOME O2 DVT PROPHYLAXIS Problem List - Problems (1) PNA (pneumonia) Code(s): J18.9 - PNEUMONIA, UNSPECIFIED ORGANISM Qualifiers: Pneumonia type: due to unspecified organism Laterality: left Lung location: lower lobe of lung Qualified Code(s): J18.1 - Lobar pneumonia, unspecified organism (2) Degenerative joint disease of knee, right Code(s): M17.11 - UNILATERAL PRIMARY OSTEOARTHRITIS, RIGHT KNEE Qualifiers: Osteoarthritis type: unspecified Qualified Code(s): M17.11 - Unilateral primary osteoarthritis, right knee (3) Acute hypoxemic respiratory failure Code(s): J96.01 - ACUTE RESPIRATORY FAILURE WITH HYPOXIA (4) Pulmonary fibrosis Code(s): J84.10 - PULMONARY FIBROSIS, UNSPECIFIED (5) HTN (hypertension) Code(s): I10 - ESSENTIAL (PRIMARY) HYPERTENSION (6) HLD (hyperlipidemia) Code(s): E78.5 - HYPERLIPIDEMIA, UNSPECIFIED
[2018-03-27] MEDS ORDERED: AZITHROMYCIN IVPB 250 MG in DEXTROSE 5%-WATER - 250 ML IVPB SCH (18:00)
[2018-03-27] MEDS ORDERED: methylPREDNISolone NA SUCC 40 MG/1 ML VIAL IVPB SCH (18:00)
[2018-03-27] MEDS: CEFTRIAXONE 1 GM in DEXTROSE 5%-WATER - 50 ML IVPB SCH (18:04)
--- NOTE | 2018-03-27 18:19 | CONS ---
DATE OF CONSULTATION: 03/27/2018 REFERRING PHYSICIAN: PARRIS Martin The patient is a 68-year-old female with a past medical history of interstitial lung disease and pulmonary fibrosis being followed over at [facility], thyroid nodule, hypertension, hyperlipidemia, nonsmoker, admitted to [facility] with complaint of 2-week history of increasing shortness of breath, cough productive of yellow sputum and intermittent fevers. Patient states that she started developing symptoms in mid-February. At the time, she started developing fevers, cough, chest congestion, and shortness of breath. She initially did not seek medical attention. States that her son just arrived in [place], and she was showing him around. She states that she has had intermittent temperature spikes every night for the past couple of weeks. Over the past couple of days, though, she started to develop increasing shortness of breath, cough, and chest congestion. She also complained of chest discomfort. She denied any nausea, vomiting, or diaphoresis. She denied any hemoptysis. She was admitted with the above. On admission, she was felt to have possible pneumonia. She was placed on antibiotic therapy. Patient underwent a CT scan of the chest, which revealed evidence of chronic interstitial lung disease and fibrotic changes bilaterally. She denies any history of occupational exposures to chemicals or fumes. She was born in [facility] and moved to the [place] greater than 30 years ago. There is no history of respiratory failure in the past requiring ventilatory support, and she is not currently maintained on home O2. She presented to the emergency room with the above complaints. Also, on admission, she was noted to be hypoxic with O2 saturation of 89%. She was placed on supplemental O2. The patient, as stated before, is being followed by a foundation coordinator at [facility], has been maintained on prednisone 10 mg daily. PAST MEDICAL HISTORY: Again includes pulmonary fibrosis, thyroid nodule, hypertension, hyperlipidemia. REVIEW OF SYSTEMS: Positive cough. Positive chest congestion. Positive fever. Positive chills. No nausea. No vomiting. No abdominal pain. SOCIAL HISTORY: Born in [facility], moved to the [place] 30 years ago. No occupational exposures. Five children. CURRENT MEDICATIONS: Include Solu-Medrol 40 q.8 hours, Prinivil, Zithromax, ceftriaxone, Lovenox, heparin, DuoNeb, Protonix. PHYSICAL EXAMINATION: General: The patient is an elderly female, awake, alert, in no acute distress. Vital Signs: She is currently afebrile. Blood pressure is 114/75. Respiratory rate is 20. O2 saturation is 95% on 2 L. HEENT: Normocephalic, atraumatic. Neck: Supple. Heart: Regular. S1, S2. Chest: Bilateral rhonchi and crackles throughout. Abdomen: Soft. Bowel sounds are positive. Extremities: No cyanosis or edema. LABORATORIES: WBC is 9.5, hemoglobin 11.7, hematocrit 34.2 with a platelet count of 230,000. INR is 1.17. BUN is 13, creatinine 0.9. Alkaline phosphatase is 254 , ALT is 79, AST is 69. BNP is 311. Chest CT again as noted. There is again enlarged left thyroid, mild retrosternal extension. There is normal cardiac silhouette. There are large mediastinal nodes, the largest being 2.2 x 1.1 cm, aortopulmonary window. There is a right hilar node and a right paratracheal node. There are diffuse bilateral interstitial markings with pleural thickening in pleura and bilateral lower lobe bronchiectasis and bulla. IMPRESSION: 1. Acute hypoxemic respiratory failure secondary to advanced interstitial lung disease, pulmonary fibrosis. 2. Likely upper respiratory tract infection; cannot exclude possible pneumonia, although no definitive findings on chest CT. 3. Hypertension. 4. Hyperlipidemia. 5. Rheumatoid arthritis. PLAN: IV steroids, inhaled bronchodilators, supplemental O2. DVT prophylaxis, antibiotics. Obtain cultures. PFT as outpatient. Will also check O2 saturation at rest and post exercise prior to discharge to see if patient is a candidate for home O2. ANIKA ACEVEDO M.D. AUDELIA/[id number] MTDD
[2018-03-27] MEDS: methylPREDNISolone NA SUCC 40 MG/1 ML VIAL IVPUSH SCH (21:39)
[2018-03-28] MEDS ORDERED: guaiFENesin/CODEINE 10 ML UNIT-DOSE CUPS PO ONE (01:43)
[2018-03-28] MEDS: methylPREDNISolone NA SUCC 40 MG/1 ML VIAL IVPUSH SCH ×4 (02:03→20:53)
[2018-03-28] MEDS: ALBUTEROL SO4 2.5/IPRATROPIUM 0.5 INH SOL 3 ML VIAL.NEB. NEB SCH ×6 (06:38→22:01)
[2018-03-28] MEDS ORDERED: cefTRIAXone SODIUM 1 GM VIAL ONE (08:55)
[2018-03-28] MEDS ORDERED: DEXTROSE 5%-WATER - 50 ML IVPB ONE (08:55)
[2018-03-28] MEDS: CEFTRIAXONE 1 GM in DEXTROSE 5%-WATER - 50 ML IVPB SCH (09:01)
[2018-03-28] MEDS: PANTOPRAZOLE 40 MG TABLET (FP) PO SCH (09:01)
[2018-03-28] MEDS: ENOXAPARIN NA (PORCINE) 40 MG/0.4 ML DISP.SYRIN SQ SCH (09:01)
[2018-03-28] MEDS: LISINOPRIL 10 MG TABLET (FP) PO SCH (09:01)
[2018-03-28] MEDS: AZITHROMYCIN IVPB 250 MG in DEXTROSE 5%-WATER - 250 ML IVPB SCH (09:01)
[2018-03-28 09:04] LABS: ALK PHOS 288 U/L (45-117); ANION GAP 13 (8-16); BILIRUBIN,TOTAL 0.4 mg/dL (0.2-1.0); BLOOD UREA NITROGEN 13 mg/dL (7-18); CALCIUM 8.5 mg/dL (8.5-10.1); CHLORIDE 102 mmol/L (98-107); CO2 23 mmol/L (21-32); CREATININE 0.9 mg/dL (0.55-1.02); GLUCOSE,RANDOM 248 mg/dL (74-106); POTASSIUM 3.9 mmol/L (3.5-5.1); SGOT/AST 112 U/L (15-37); SGPT/ALT 116 U/L (12-78); SODIUM 138 mmol/L (136-145); TOT PROT 7.7 g/dl (6.4-8.2)
[2018-03-28] MEDS ORDERED: ALBUTEROL SO4 0.083% IH SOL 2.5 MG/3 ML VIAL.NEB. NEB PRN (10:40)
--- NOTE | 2018-03-28 10:40 | PN ---
Progress Note (short form) - Note Progress Note: PULMONARY States breathing is much improved. Still with productive cough. No fevers or chills. Last Vital Signs Temp Pulse Resp BP Pulse Ox 97.0 F L 75 16 114/72 94 L 03/28/18 09:00 03/28/18 09:00 03/28/18 09:00 03/28/18 09:00 03/27/18 21:00 Gen: NAD at rest Heart: RRR Lung: bilateral rhonchi, rales, wheezes Abd: soft, nontender Ext: no edema CBC, BMP 03/27/18 06:20 03/28/18 06:00 Active Medications Albuterol/Ipratropium (Duoneb -) 1 amp NEB Q4HWA [facility] Last Admin: 03/28/18 09:49 Dose: 1 amp Enoxaparin Sodium (Lovenox -) 40 mg SQ DAILY [facility] Last Admin: 03/28/18 09:01 Dose: 40 mg Ceftriaxone Sodium 1 gm/ (Dextrose) 50 mls @ 200 mls/hr IVPB DAILY [facility]; Protocol Stop: 03/29/18 23:59 Last Admin: 03/28/18 09:01 Dose: 200 mls/hr Azithromycin 250 mg/ Dextrose 250 mls @ 250 mls/hr IVPB DAILY MATHIEU Stop: 03/31/18 09:59 Last Admin: 03/28/18 09:01 Dose: 250 mls/hr Lisinopril (Prinivil) 10 mg PO DAILY [facility] Last Admin: 03/28/18 09:01 Dose: 10 mg Methylprednisolone Sodium Succinate (Solu-Medrol -) 40 mg IVPUSH Q6H-IV MATHIEU Last Admin: 03/28/18 09:01 Dose: 40 mg Pantoprazole Sodium (Protonix -) 40 mg PO DAILY [facility] Last Admin: 03/28/18 09:01 Dose: 40 mg A/P Acute Hypoxic Respiratory Failure Interstitial Lung Disease r/o Pneumonia HTN Hyperlipidemia - continue antibiotics - continue medrol at current dose - can likely taper steroids in AM if continues to improved - O2 to keep SpO2 >90% - inhaled bronchodilators standing and PRN - when ready for discharge, will need to check ambulatory SpO2 on room air to assess for home O2 - outpt PFTs and f/u - DVT prophylaxis
--- NOTE | 2018-03-28 15:39 | PN ---
Physical Exam: SUBJECTIVE: Patient seen and examined. Appears improved feels much better, showered today, no issues with exertion OBJECTIVE: Vital Signs Period Temp Pulse Resp BP Sys/Burgess Pulse Ox Last 24 Hr 97.0 F-98.5 F 65-76 16-24 114-133/65-78 94-94 PE Neuro: alert, awake, cn 2-12intact Pulm: bilateral rales + nc CV: s1 s2 rrr no mrg Abd: s nt nd + bs Ext: Warm, no le edema Laboratory Results - last 24 hr 03/28/18 06:00 Sodium 138 Potassium 3.9 Chloride 102 Carbon Dioxide 23 Anion Gap 13 BUN 13 Creatinine 0.9 Creat Clearance w eGFR > 60 Random Glucose 248 H Calcium 8.5 Total Bilirubin 0.4 AST 112 H ALT 116 H Alkaline Phosphatase 288 H Total Protein 7.7 Albumin 3.0 L Active Medications Generic Name Dose Route Start Last Admin Trade Name Freq PRN Reason Stop Dose Admin Albuterol Sulfate 1 amp 03/28/18 10:40 Ventolin 0.083% Nebulizer Soln - NEB Q4H PRN SHORT OF BREATH/WHEEZING Albuterol/Ipratropium 1 amp 03/27/18 06:00 03/28/18 09:49 Duoneb - NEB 1 amp Q4HWA MATHIEU Administration Enoxaparin Sodium 40 mg 03/28/18 10:00 03/28/18 09:01 Lovenox - SQ 40 mg DAILY MATHIEU Administration Ceftriaxone Sodium 1 gm/ 50 mls @ 200 mls/hr 03/27/18 18:00 03/28/18 09:01 Dextrose IVPB 03/29/18 23:59 200 mls/hr DAILY MATHIEU Administration Protocol Azithromycin 250 mg/ Dextrose 250 mls @ 250 mls/hr 03/28/18 10:00 03/28/18 09 :01 IVPB 03/31/18 09:59 250 mls/hr DAILY MATHIEU Administration Lisinopril 10 mg 03/27/18 10:00 03/28/18 09:01 Prinivil PO 10 mg DAILY MATHIEU Administration Methylprednisolone Sodium Succinate 40 mg 03/27/18 21:00 03/28/18 14:08 Solu-Medrol - IVPUSH 40 mg Q6H-IV MATHIEU Administration Pantoprazole Sodium 40 mg 03/27/18 10:00 03/28/18 09:01 Protonix - PO 40 mg DAILY MATHIEU Administration Assessment: 68 year old female with pmhx of pulmonary fibrosis (non smoker), thyroid nodule, HTN, HLD, presented with increased SOB, cough, fever with associated sub sternal cp. Plan: 1. Acute hypoxemia, interstitial pulmonary fibrosis flare, community acquired pna - Maintain medrol 40mg q6hr - Taper in AM if continue to improve - Continue ceftriaxone, azithro - Duo nebs - CT chest noted - Maintain supplemental o2 >92% - Protonix daily - Pulm seeing 2. Pulmonary fibrosis - Predinose 10mg daily for 2 years 3. Elevated LFTs - Elevated today, CT chest shows fatty liver - HIV neg - Will monitor, obtain US if continues to rise 4. HTN - Lisinopril 10mg daily 5. DVT ppx - Lovenox sq Visit type - Emergency Visit Emergency Visit: Yes ED Registration Date: 03/27/18 Care time: The patient presented to the Emergency Department on the above date and was hospitalized for further evaluation of their emergent condition. - New Patient This patient is new to me today: No - Critical Care Critical Care patient: No
[2018-03-29] MEDS: methylPREDNISolone NA SUCC 40 MG/1 ML VIAL IVPUSH SCH ×3 (02:09→17:01)
[2018-03-29 08:24] LABS: CHLORIDE 103 mmol/L (98-107); POTASSIUM 3.7 mmol/L (3.5-5.1); SODIUM 138 mmol/L (136-145)
[2018-03-29 08:39] LABS: ALBUMIN 2.8 g/dl (3.4-5.0); ALK PHOS 237 U/L (45-117); ANION GAP 13 (8-16); BILIRUBIN,TOTAL 0.3 mg/dL (0.2-1.0); BLOOD UREA NITROGEN 17 mg/dL (7-18); CALCIUM 8.5 mg/dL (8.5-10.1); CO2 22 mmol/L (21-32); GLUCOSE,RANDOM 260 mg/dL (74-106); SGOT/AST 77 U/L (15-37); SGPT/ALT 129 U/L (12-78)
[2018-03-29] MEDS ORDERED: cefTRIAXone SODIUM 1 GM VIAL ONE (09:17)
[2018-03-29] MEDS ORDERED: DEXTROSE 5%-WATER - 50 ML IVPB ONE (09:17)
[2018-03-29] MEDS: CEFTRIAXONE 1 GM in DEXTROSE 5%-WATER - 50 ML IVPB SCH (09:27)
[2018-03-29] MEDS: LISINOPRIL 10 MG TABLET (FP) PO SCH (09:28)
[2018-03-29] MEDS: PANTOPRAZOLE 40 MG TABLET (FP) PO SCH (09:28)
[2018-03-29] MEDS: ENOXAPARIN NA (PORCINE) 40 MG/0.4 ML DISP.SYRIN SQ SCH (09:28)
[2018-03-29] MEDS: AZITHROMYCIN IVPB 250 MG in DEXTROSE 5%-WATER - 250 ML IVPB SCH (09:37)
[2018-03-29] MEDS: ALBUTEROL SO4 2.5/IPRATROPIUM 0.5 INH SOL 3 ML VIAL.NEB. NEB SCH ×4 (10:05→21:45)
--- NOTE | 2018-03-29 13:49 | PN ---
Physical Exam: SUBJECTIVE: Patient seen and examined. Pt appears much improved, active, conversational. Wants to go home. OBJECTIVE: Vital Signs Period Temp Pulse Resp BP Sys/Burgess Pulse Ox Last 24 Hr 97.5 F-98.2 F 68-90 18-22 120-141/70-81 95 PE Neuro: alert, awake, cn 2-12intact Pulm: bilateral crackles + nc no wheezing, sob, tachypnea CV: s1 s2 rrr no mrg Abd: s nt nd + bs Ext: Warm, no le edema Laboratory Results - last 24 hr 03/29/18 06:00 Sodium 138 Potassium 3.7 Chloride 103 Carbon Dioxide 22 Anion Gap 13 BUN 17 Creatinine 1.0 Creat Clearance w eGFR 54.81 Random Glucose 260 H Calcium 8.5 Total Bilirubin 0.3 D AST 77 H ALT 129 H Alkaline Phosphatase 237 H Total Protein 7.0 Albumin 2.8 L Active Medications Generic Name Dose Route Start Last Admin Trade Name Freq PRN Reason Stop Dose Admin Albuterol Sulfate 1 amp 03/28/18 10:40 Ventolin 0.083% Nebulizer Soln - NEB Q4H PRN SHORT OF BREATH/WHEEZING Albuterol/Ipratropium 1 amp 03/27/18 06:00 03/29/18 10:05 Duoneb - NEB 1 amp Q4HWA MATHIEU Administration Enoxaparin Sodium 40 mg 03/28/18 10:00 03/29/18 09:28 Lovenox - SQ 40 mg DAILY MATHIEU Administration Ceftriaxone Sodium 1 gm/ 50 mls @ 200 mls/hr 03/27/18 18:00 03/29/18 09:27 Dextrose IVPB 03/29/18 23:59 200 mls/hr DAILY MATHIEU Administration Protocol Azithromycin 250 mg/ Dextrose 250 mls @ 250 mls/hr 03/28/18 10:00 03/29/18 09 :37 IVPB 03/31/18 09:59 250 mls/hr DAILY MATHIEU Administration Lisinopril 10 mg 03/27/18 10:00 03/29/18 09:28 Prinivil PO 10 mg DAILY MATHIEU Administration Methylprednisolone Sodium Succinate 40 mg 03/29/18 18:00 Solu-Medrol - IVPUSH Q8H-IV MATHIEU Pantoprazole Sodium 40 mg 03/27/18 10:00 03/29/18 09:28 Protonix - PO 40 mg DAILY MATHIEU Administration Assessment: 68 year old female with pmhx of pulmonary fibrosis (non smoker), thyroid nodule, HTN, HLD, presented with increased SOB, cough, fever with associated sub sternal cp. Plan: 1. Acute hypoxemia, interstitial pulmonary fibrosis flare, community acquired pna - Taper medrol 40mg q8hr - Continue ceftriaxone, azithro - Duo nebs - Protonix daily - Pulm seeing 2. Pulmonary fibrosis - Predinose 10mg daily for 2 years 3. Elevated LFTs - Improved - HIV neg - Will monitor, obtain US if continues to rise 4. HTN - Lisinopril 10mg daily 5. DVT ppx - Lovenox sq Visit type - Emergency Visit Emergency Visit: Yes ED Registration Date: 03/27/18 Care time: The patient presented to the Emergency Department on the above date and was hospitalized for further evaluation of their emergent condition. - New Patient This patient is new to me today: No - Critical Care Critical Care patient: No
--- NOTE | 2018-03-29 13:59 | PN ---
Progress Note, Physician History of Present Illness: PULMONARY ALERT FEELING BETTER,DYSPNEA IMPROVING,LESS COUGH - Current Medication List Current Medications: Active Medications Albuterol Sulfate (Ventolin 0.083% Nebulizer Soln -) 1 amp NEB Q4H PRN PRN Reason: SHORT OF BREATH/WHEEZING Albuterol/Ipratropium (Duoneb -) 1 amp NEB Q4HWA [facility] Last Admin: 03/29/18 10:05 Dose: 1 amp Enoxaparin Sodium (Lovenox -) 40 mg SQ DAILY [facility] Last Admin: 03/29/18 09:28 Dose: 40 mg Ceftriaxone Sodium 1 gm/ (Dextrose) 50 mls @ 200 mls/hr IVPB DAILY [facility]; Protocol Stop: 03/29/18 23:59 Last Admin: 03/29/18 09:27 Dose: 200 mls/hr Azithromycin 250 mg/ Dextrose 250 mls @ 250 mls/hr IVPB DAILY [facility] Stop: 03/31/18 09:59 Last Admin: 03/29/18 09:37 Dose: 250 mls/hr Lisinopril (Prinivil) 10 mg PO DAILY [facility] Last Admin: 03/29/18 09:28 Dose: 10 mg Methylprednisolone Sodium Succinate (Solu-Medrol -) 40 mg IVPUSH Q8H-IV MATHIEU Pantoprazole Sodium (Protonix -) 40 mg PO DAILY [facility] Last Admin: 03/29/18 09:28 Dose: 40 mg - Objective Vital Signs: Vital Signs Temperature 97.5 F L 03/29/18 09:00 Pulse Rate 71 03/29/18 09:00 Respiratory Rate 20 03/29/18 09:00 Blood Pressure 133/72 03/29/18 09:00 O2 Sat by Pulse Oximetry (%) 95 03/28/18 19:47 Constitutional: Yes: Calm, Thin Eyes: Yes: WNL HENT: Yes: WNL Neck: Yes: WNL Cardiovascular: Yes: Regular Rate and Rhythm, S1, S2 Respiratory: Yes: Rales, Rhonchi, Wheezes (BILATERAL WHEEZES,RHONCHI,RALES) Gastrointestinal: Yes: Normal Bowel Sounds, Soft Extremities: Yes: WNL Edema: No Labs: CBC, BMP 03/27/18 06:20 03/29/18 06:00 INR, PTT INR 1.17 (0.82-1.09) H 03/26/18 21:35 Problem List - Problems (1) PNA (pneumonia) Code(s): J18.9 - PNEUMONIA, UNSPECIFIED ORGANISM Qualifiers: Pneumonia type: due to unspecified organism Laterality: left Lung location: lower lobe of lung Qualified Code(s): J18.1 - Lobar pneumonia, unspecified organism (2) Degenerative joint disease of knee, right Code(s): M17.11 - UNILATERAL PRIMARY OSTEOARTHRITIS, RIGHT KNEE Qualifiers: Osteoarthritis type: unspecified Qualified Code(s): M17.11 - Unilateral primary osteoarthritis, right knee (3) Acute hypoxemic respiratory failure Code(s): J96.01 - ACUTE RESPIRATORY FAILURE WITH HYPOXIA (4) Pulmonary fibrosis Code(s): J84.10 - PULMONARY FIBROSIS, UNSPECIFIED (5) HTN (hypertension) Code(s): I10 - ESSENTIAL (PRIMARY) HYPERTENSION (6) HLD (hyperlipidemia) Code(s): E78.5 - HYPERLIPIDEMIA, UNSPECIFIED Assessment/Plan IMP ACUTE HYPOXEMIC RESPIRATORY FAILURE IMPROVING ADVANCED INTERSTITIAL LUNG DISEASE/PULMONARY FIBROSIS LIKELY URI,? PNEUMONIA HTN HLD ARTHRITIS PLAN ABX STEROIDS INHALED BRONCHODILATORS SUPPLEMENTAL O2 F/U CHEST X-RAYS CHECK PRE-AND POST EXERCISE ON RA PRIOR TO DISCHARGE TO DETERMINE IF PT IS A CANDIDATE FOR HOME O2 DVT PROPHYLAXIS Problem List - Problems (1) PNA (pneumonia) Code(s): J18.9 - PNEUMONIA, UNSPECIFIED ORGANISM Qualifiers: Pneumonia type: due to unspecified organism Laterality: left Lung location: lower lobe of lung Qualified Code(s): J18.1 - Lobar pneumonia, unspecified organism (2) Degenerative joint disease of knee, right Code(s): M17.11 - UNILATERAL PRIMARY OSTEOARTHRITIS, RIGHT KNEE Qualifiers: Osteoarthritis type: unspecified Qualified Code(s): M17.11 - Unilateral primary osteoarthritis, right knee (3) Acute hypoxemic respiratory failure Code(s): J96.01 - ACUTE RESPIRATORY FAILURE WITH HYPOXIA (4) Pulmonary fibrosis Code(s): J84.10 - PULMONARY FIBROSIS, UNSPECIFIED (5) HTN (hypertension) Code(s): I10 - ESSENTIAL (PRIMARY) HYPERTENSION (6) HLD (hyperlipidemia) Code(s): E78.5 - HYPERLIPIDEMIA, UNSPECIFIED
[2018-03-29 16:03] VITALS: BMI 29.1
[2018-03-30] MEDS: methylPREDNISolone NA SUCC 40 MG/1 ML VIAL IVPUSH SCH ×3 (01:51→21:17)
[2018-03-30] MEDS: ALBUTEROL SO4 2.5/IPRATROPIUM 0.5 INH SOL 3 ML VIAL.NEB. NEB SCH ×5 (06:59→21:40)
[2018-03-30 08:05] LABS: ALBUMIN 2.8 g/dl (3.4-5.0); ANION GAP 10 (8-16); BLOOD UREA NITROGEN 19 mg/dL (7-18); CALCIUM 8.3 mg/dL (8.5-10.1); CHLORIDE 102 mmol/L (98-107); CO2 27 mmol/L (21-32); CREATININE 0.7 mg/dL (0.55-1.02); GLUCOSE,RANDOM 222 mg/dL (74-106); POTASSIUM 4.1 mmol/L (3.5-5.1); SGOT/AST 43 U/L (15-37); SGPT/ALT 111 U/L (12-78); SODIUM 139 mmol/L (136-145); TOT PROT 6.5 g/dl (6.4-8.2)
[2018-03-30 08:08] LABS: ALK PHOS 174 U/L (45-117); BILIRUBIN,TOTAL 0.2 mg/dL (0.2-1.0)
[2018-03-30] MEDS: ENOXAPARIN NA (PORCINE) 40 MG/0.4 ML DISP.SYRIN SQ SCH (09:19)
[2018-03-30] MEDS: AZITHROMYCIN IVPB 250 MG in DEXTROSE 5%-WATER - 250 ML IVPB SCH (09:19)
[2018-03-30] MEDS: PANTOPRAZOLE 40 MG TABLET (FP) PO SCH (09:20)
[2018-03-30] MEDS: LISINOPRIL 10 MG TABLET (FP) PO SCH (09:20)
--- NOTE | 2018-03-30 11:07 | PN ---
Progress Note (short form) - Note Progress Note: PULMONARY States breathing continues to improve. Still with productive cough. No fevers or chills. Last Vital Signs Temp Pulse Resp BP Pulse Ox 97.1 F L 60 16 129/73 98 03/30/18 10:00 03/30/18 10:00 03/30/18 10:00 03/30/18 10:00 03/29/18 21:00 Gen: NAD at rest Heart: RRR Lung: bilateral rhonchi, rales, wheezes Abd: soft, nontender Ext: no edema CBC, BMP 03/27/18 06:20 03/30/18 06:00 Active Medications Albuterol Sulfate (Ventolin 0.083% Nebulizer Soln -) 1 amp NEB Q4H PRN PRN Reason: SHORT OF BREATH/WHEEZING Albuterol/Ipratropium (Duoneb -) 1 amp NEB Q4HWA [facility] Last Admin: 03/30/18 09:42 Dose: 1 amp Enoxaparin Sodium (Lovenox -) 40 mg SQ DAILY [facility] Last Admin: 03/30/18 09:19 Dose: 40 mg Azithromycin 250 mg/ Dextrose 250 mls @ 250 mls/hr IVPB DAILY [facility] Stop: 03/31/18 09:59 Last Admin: 03/30/18 09:19 Dose: 250 mls/hr Lisinopril (Prinivil) 10 mg PO DAILY [facility] Last Admin: 03/30/18 09:20 Dose: 10 mg Methylprednisolone Sodium Succinate (Solu-Medrol -) 40 mg IVPUSH Q8H-IV [facility] Last Admin: 03/30/18 09:19 Dose: 40 mg Pantoprazole Sodium (Protonix -) 40 mg PO DAILY [facility] Last Admin: 03/30/18 09:20 Dose: 40 mg A/P Acute Hypoxic Respiratory Failure Interstitial Lung Disease r/o Pneumonia HTN Hyperlipidemia - continue antibiotics - will decrease medrol to q12h - O2 to keep SpO2 >90% - inhaled bronchodilators standing and PRN - when ready for discharge, will need to check ambulatory SpO2 on room air to assess for home O2 - outpt PFTs and f/u - DVT prophylaxis
--- NOTE | 2018-03-30 15:21 | PN ---
Physical Exam: SUBJECTIVE: Patient seen and examined. She is improved, in chair, talking on phone. Eager to go home OBJECTIVE: Vital Signs Period Temp Pulse Resp BP Sys/Burgess Pulse Ox Last 24 Hr 97.1 F-98.5 F 60-80 16-20 113-144/60-89 98-98 PE Neuro: alert, awake, cn 2-12intact Pulm: bilateral crackles r lobe rales, rhonchi CV: s1 s2 rrr no mrg Abd: s nt nd + bs Ext: Warm, no le edema Laboratory Results - last 24 hr 03/30/18 06:00 Sodium 139 Potassium 4.1 Chloride 102 Carbon Dioxide 27 Anion Gap 10 BUN 19 H Creatinine 0.7 Creat Clearance w eGFR > 60 Random Glucose 222 H Calcium 8.3 L Total Bilirubin 0.2 D AST 43 H ALT 111 H Alkaline Phosphatase 174 H Total Protein 6.5 Albumin 2.8 L Active Medications Generic Name Dose Route Start Last Admin Trade Name Freq PRN Reason Stop Dose Admin Albuterol Sulfate 1 amp 03/28/18 10:40 03/30/18 13:17 Ventolin 0.083% Nebulizer Soln - NEB 1 amp Q4H PRN Administration SHORT OF BREATH/WHEEZING Albuterol/Ipratropium 1 amp 03/30/18 12:00 03/30/18 13:17 Duoneb - NEB Not Given RQID MATHIEU Enoxaparin Sodium 40 mg 03/28/18 10:00 03/30/18 09:19 Lovenox - SQ 40 mg DAILY MATHIEU Administration Azithromycin 250 mg/ Dextrose 250 mls @ 250 mls/hr 03/28/18 10:00 03/30/18 09 :19 IVPB 03/31/18 09:59 250 mls/hr DAILY MATHIEU Administration Insulin Aspart 1 vial 03/30/18 16:30 Novolog Vial Sliding Scale - SQ ACHS MATHIEU Protocol Lisinopril 10 mg 03/27/18 10:00 03/30/18 09:20 Prinivil PO 10 mg DAILY MATHIEU Administration Methylprednisolone Sodium Succinate 40 mg 03/30/18 22:00 Solu-Medrol - IVPUSH BID MATHIEU Pantoprazole Sodium 40 mg 03/27/18 10:00 03/30/18 09:20 Protonix - PO 40 mg DAILY MATHIEU Administration Assessment: 68 year old female with pmhx of pulmonary fibrosis (non smoker), thyroid nodule, HTN, HLD, presented with increased SOB, cough, fever with associated sub sternal cp. Plan: 1. Acute hypoxemia, interstitial pulmonary fibrosis flare, community acquired pna - Taper medrol 40mg BID - Continue ceftriaxone, azithro - Duo nebs - Protonix daily - Pre and post for home o2 before discharge 2. Pulmonary fibrosis - Predinose 10mg daily for 2 years 3. Elevated LFTs - Improved - Abd us noted 4. HTN - Lisinopril 10mg daily 5. DVT ppx - Lovenox sq Dispo: - Possible dc home tomorrow Visit type - Emergency Visit Emergency Visit: Yes ED Registration Date: 03/27/18 Care time: The patient presented to the Emergency Department on the above date and was hospitalized for further evaluation of their emergent condition. - New Patient This patient is new to me today: No - Critical Care Critical Care patient: No
[2018-03-30] MEDS ORDERED: INSULIN (NOVOLOG) ASPART 100 UNITS/ML 10ML VIAL ONE ×2 (16:43→18:06)
[2018-03-30] MEDS: INSULIN SLIDING SCALE (NOVOLOG) 1 VIAL SQ SCH ×2 (16:48→21:21)
[2018-03-31] MEDS: INSULIN SLIDING SCALE (NOVOLOG) 1 VIAL SQ SCH ×4 (06:18→21:51)
[2018-03-31] MEDS: ALBUTEROL SO4 2.5/IPRATROPIUM 0.5 INH SOL 3 ML VIAL.NEB. NEB SCH ×4 (07:45→20:30)
[2018-03-31 08:26] LABS: CHLORIDE 101 mmol/L (98-107); SODIUM 138 mmol/L (136-145)
[2018-03-31 08:45] LABS: ALBUMIN 2.8 g/dl (3.4-5.0); ALK PHOS 149 U/L (45-117); ANION GAP 9 (8-16); BILIRUBIN,TOTAL 0.2 mg/dL (0.2-1.0); BLOOD UREA NITROGEN 20 mg/dL (7-18); CALCIUM 8.2 mg/dL (8.5-10.1); CO2 28 mmol/L (21-32); CREATININE 0.7 mg/dL (0.55-1.02); GLUCOSE,RANDOM 187 mg/dL (74-106); SGPT/ALT 101 U/L (12-78); TOT PROT 6.3 g/dl (6.4-8.2)
[2018-03-31 09:49] LABS: POTASSIUM 4.7 mmol/L (3.5-5.1); SGOT/AST 41 U/L (15-37)
[2018-03-31] MEDS: methylPREDNISolone NA SUCC 40 MG/1 ML VIAL IVPUSH SCH ×2 (09:58→21:41)
[2018-03-31] MEDS: PANTOPRAZOLE 40 MG TABLET (FP) PO SCH (10:03)
[2018-03-31] MEDS: ENOXAPARIN NA (PORCINE) 40 MG/0.4 ML DISP.SYRIN SQ SCH (10:04)
[2018-03-31] MEDS: LISINOPRIL 10 MG TABLET (FP) PO SCH (10:04)
--- NOTE | 2018-03-31 11:22 | PN ---
Progress Note (short form) - Note Progress Note: PULMONARY SITTING UP IN BED FEELS SOMEWHAT BETTER CHART REVIEWED VSS/AFEBRILE ANICTERIC DIFFUSE BILATERAL INSP CRACKLES S1S2 BS+ NO EDEMA LABS/MEDS/IMAGES/NOTES REVIEWED OF NOTE IS AN ABD CT DONE IN 2012 WHICH REVEALED BIBASILAR SUB-PLEURAL INTERSTITIAL CHANGES PATIENT STATES THAT SHE WAS TOLD THREE YEARS AGO THAT SHE HAD PULMONARY FIBROSIS BUT WASN'T GIVEN AN ETIOLOGY AND FAR SHE CAN RECALL A LUNG BX WAS NOT DONE A/P Acute Hypoxic Respiratory Failure Interstitial Lung Disease etiology unknown ? Pneumonia HTN Hyperlipidemia - continue antibiotics - medrol to q12h - O2 to keep SpO2 >90% - inhaled bronchodilators standing and PRN - parameters reviewed will need home O2 - outpt PFTs - DVT prophylaxis - try to obtain previous workup if any of her IPF Sanchez SALVADOR MD
--- NOTE | 2018-03-31 12:01 | DS ---
Physical Exam: SUBJECTIVE: Patient seen and examined. continues to have non productive cough. improved since presentation. requesting to go home. denies CP, SOB, fever, chills, N/V/C/D OBJECTIVE: Vital Signs Period Temp Pulse Resp BP Sys/Burgess Pulse Ox Last 24 Hr 97.6 F-98.9 F 58-89 20-20 113-153/64-74 95-98 PHYSICAL EXAM GENERAL: The patient is awake, alert, and fully oriented, in no acute distress. HEAD: Normal with no signs of trauma. EYES: PERRL, extraocular movements intact, sclera anicteric, conjunctiva clear. ENT: Ears normal, nares patent, oropharynx clear without exudates, moist mucous membranes. NECK: Trachea midline, full range of motion, supple. LUNGS: coarse breath sounds diffusely, no wheezes, no crackles, no accessory muscle use. HEART: Regular rate and rhythm, S1, S2 without murmur, rub or gallop. ABDOMEN: Soft, nontender, nondistended, normoactive bowel sounds, no guarding, no rebound, no hepatosplenomegaly, no masses. EXTREMITIES: 2+ pulses, warm, well-perfused, no edema. NEUROLOGICAL: Cranial nerves II through XII grossly intact. Normal speech, gait not observed. PSYCH: Normal mood, normal affect. SKIN: Warm, dry, normal turgor, no rashes or lesions noted. LABS Laboratory Results - last 24 hr 03/30/18 03/30/18 03/31/18 16:41 21:20 05:55 Sodium Potassium Chloride Carbon Dioxide Anion Gap BUN Creatinine Creat Clearance w eGFR POC Glucometer 262 111 182 Random Glucose Calcium Total Bilirubin AST ALT Alkaline Phosphatase Total Protein Albumin 03/31/18 07:40 Sodium 138 Potassium 4.7 Chloride 101 Carbon Dioxide 28 Anion Gap 9 BUN 20 H Creatinine 0.7 Creat Clearance w eGFR > 60 POC Glucometer Random Glucose 187 H Calcium 8.2 L Total Bilirubin 0.2 AST 41 H ALT 101 H Alkaline Phosphatase 149 H Total Protein 6.3 L Albumin 2.8 L HOSPITAL COURSE: Date of Admission:03/27/18 Date of Discharge: 03/31/18 Admitting diagnosis: Acute hypoxic respiratory failure, Acute COPD exacerbation , elevated LFT Pre hospital course 68 yr old Icelandic speaking woman with pulmonary fibrosis(never smoker), thyroid nodule, HTN, HLD, presents with cough, fevers and increased shortness of breath for past few days. worsening symptoms today associated with substernal chest pain, worse with inspiration/cough. Denies palpitations, abdominal pain, diarrhea, constipation, dysuria, weakness, lightheadedness. denies hx of liver disease, recent etoh use. has been on prednisone 10mg daily for past 2 yrs. Subsequent hospital course Admitted to medicine. started on IV steroids and Azithromycin. pt slowly improved. LFT were noted to be elevated which self resolved. was evaluated and qualified for home O2 as resting O2 87% on RA requiring 2L to raise spO2 to 95% . spoke with pulmonary and will discharge on slow steroid taper. decrease by 10mg q4days. will need pulmonary outpatient follow up for PFT and bx. d/c home on home o2 Minutes to complete discharge: 40 Discharge Summary Reason For Visit: FEVER Current Active Problems Acute hypoxemic respiratory failure (Acute) PNA (pneumonia) (Acute) Pulmonary fibrosis (Acute) HLD (hyperlipidemia) (Chronic) HTN (hypertension) (Chronic) Condition: Improved - Instructions Diet, Activity, Other Instructions: You were admitted to the hospital for a flare of your pulmonary fibrosis You are being discharged on a slow steroid taper. PLease refer to taper below You are also being sent home with a "rescue" inhaler. Use this as needed for shortness of breath At this time you will be require to used oxygen all the time to maintain an oxygen level above 90%. You can purchase a pulse oximeter to monitor your oxygen levels. Please use 2liters by nasal cannula at all times. Follow up with primary care doctor in 1 week It is important that you follow up with a cold mill operator. The one you saw here contact information has been provided. You should see them for more testing as you may require a biopsy of your lungs. Also call them if you feel more short of breath while you taper your steroids Return to the ER if your breathing gets worse or develop a fever (temp >101) Prednisone Taper Take prednsione 40mg (4 tabs) by mouth for 4 days (04/01-04/04) Take prednisone 30mg (3 tabs) by mouth for 4 days (04/05-04/08 Take Prednisone 20mg (2 tabs) by mouth until you are seen by the lung doctors Referrals: George Brower MD [Staff Physician] - Jonny Shaikh MD [Primary Care Provider] - Disposition: HOME - Home Medications Comprehensive Discharge Medication List: Ambulatory Orders Lisinopril [Prinivil] 10 mg PO DAILY 11/12/16 Omeprazole 40 mg PO DAILY 11/12/16 Simvastatin 20 mg PO DAILY 11/12/16 Albuterol Sulfate Inhaler - [Ventolin HFA Inhaler -] 1 - 2 inh PO Q4H PRN #1 inhaler 03/31/18 predniSONE [Deltasone -] 40 mg PO ASDIR #42 tablet 03/31/18 This patient is new to me today: Yes Date on this admission: 03/31/18 Emergency Visit: Yes ED Registration Date: 03/27/18 Care time: The patient presented to the Emergency Department on the above date and was hospitalized for further evaluation of their emergent condition. Critical Care patient: No - Discharge Referral Referred to [facility] Med P.C.: No
[2018-03-31] MEDS ORDERED: PT OWN MED DRAWER 7, Y5N ONE (21:34)
[2018-04-01] MEDS: INSULIN SLIDING SCALE (NOVOLOG) 1 VIAL SQ SCH ×3 (06:30→16:29)
[2018-04-01] MEDS: ALBUTEROL SO4 2.5/IPRATROPIUM 0.5 INH SOL 3 ML VIAL.NEB. NEB SCH ×3 (07:41→16:17)
[2018-04-01] MEDS: methylPREDNISolone NA SUCC 40 MG/1 ML VIAL IVPUSH SCH (09:29)
[2018-04-01] MEDS: PANTOPRAZOLE 40 MG TABLET (FP) PO SCH (09:29)
[2018-04-01] MEDS: ENOXAPARIN NA (PORCINE) 40 MG/0.4 ML DISP.SYRIN SQ SCH (09:30)
[2018-04-01] MEDS: LISINOPRIL 10 MG TABLET (FP) PO SCH (09:30)
--- NOTE | 2018-04-01 10:45 | PN ---
Progress Note (short form) - Note Progress Note: Breathing overall improved. NAD on NC O2. Awaiting home O2 to be set up. No acute events overnight. Intake & Output 03/29/18 03/30/18 03/31/18 04/01/18 23:59 23:59 23:59 23:59 Intake Total 800 1300 1350 Balance 800 1300 1350 Weight 130 lb Last Vital Signs Temp Pulse Resp BP Pulse Ox 98.6 F 84 18 124/80 95 04/01/18 08:00 04/01/18 08:00 04/01/18 08:00 04/01/18 08:00 04/01/18 09:00 Active Medications Albuterol Sulfate (Ventolin 0.083% Nebulizer Soln -) 1 amp NEB Q4H PRN PRN Reason: SHORT OF BREATH/WHEEZING Last Admin: 03/30/18 13:17 Dose: 1 amp Albuterol/Ipratropium (Duoneb -) 1 amp NEB RQID [facility] Last Admin: 04/01/18 07:41 Dose: 1 amp Enoxaparin Sodium (Lovenox -) 40 mg SQ DAILY [facility] Last Admin: 04/01/18 09:30 Dose: 40 mg Insulin Aspart (Novolog Vial Sliding Scale -) 1 vial SQ ACHS [facility]; Protocol Last Admin: 04/01/18 06:30 Dose: 2 units Lisinopril (Prinivil) 10 mg PO DAILY [facility] Last Admin: 04/01/18 09:30 Dose: 10 mg Methylprednisolone Sodium Succinate (Solu-Medrol -) 40 mg IVPUSH BID [facility] Last Admin: 04/01/18 09:29 Dose: 40 mg Pantoprazole Sodium (Protonix -) 40 mg PO DAILY [facility] Last Admin: 04/01/18 09:29 Dose: 40 mg Gen: NAD at rest Heart: RRR Lung: bibasilar crackles/rhonchi, no wheezes Abd: soft, nontender Ext: no edema Laboratory Results - last 24 hr 03/31/18 03/31/18 03/31/18 11:24 16:37 21:47 POC Glucometer 144 234 189 04/01/18 06:27 POC Glucometer 175 A/P Acute Hypoxic Respiratory Failure Interstitial Lung Disease r/o Pneumonia HTN Hyperlipidemia - Prednisone taper - O2 to keep SpO2 >90%, qualified for home O2 which is being arranged - inhaled bronchodilators standing and PRN - outpatient PFTs and f/u. Needs further evaluation of IPF diagnosis Dr Huston
[2018-04-01 14:10] VITALS: BP 158/84; PULSE 82; TEMP 98.2
== END 2018-04-01 17:43 | disposition home or self-care (01) | DRG 193 ==
LOC: JER 21:01 → JERBED 23:51 → OBSVTOIN 03-27 02:09 → J7W 03-27 02:15
PROVIDERS: ADMIT Internal Medicine; ATTEND Nurse Practitioner Acute Care
DX: J18.9 Pneumonia, unspecified organism (principal); J96.01 Acute respiratory failure with hypoxia; J44.1 Chronic obstructive pulmonary disease with (acute) exacerbation; J84.10 Pulmonary fibrosis, unspecified; R74.0 Nonspecific elevation of levels of transaminase and lactic acid dehydrogenase [LDH]; I10 Essential (primary) hypertension; E78.5 Hyperlipidemia, unspecified; M17.11 Unilateral primary osteoarthritis, right knee; K76.0 Fatty (change of) liver, not elsewhere classified
CPT/HCPCS: 36415; 71045-TC-FY; 71260-TC; 76705-TC; 80048; 80053; 80076; 81003; 81015; 82962; 83605; 83735; 83880; 84100; 84443; 84484; 85025; 85610; 85730; 87040; 87077; 87086; 87389; 87804; 93005; 93010; 93306-TC; 94640; 94761; 99283-25; G0378; J1644; J7620

== ENCOUNTER 2024-10-17 17:25 | Emergency (ER) | payer OTHER ==
[2024-10-17 17:36] VITALS: BP 131/89; PULSE 87; RESP 22; TEMP 97.2; BMI 25.7
[2024-10-17 18:53] LABS: BASO % 0.8 % (0-2.0); EOS % 2.7 % (0-4.5); HEMATOCRIT 42.3 % (32.4-45.2); HEMOGLOBIN 14.1 GM/dL (10.7-15.3); LYMPH % 13.7 % (8-40); MCH 28.8 pg (25.7-33.7); MCHC 33.3 g/dl (32.0-36.0); MEAN CELL VOLUME 86.3 fl (80-96); MEAN PLT VOLUME 8.4 fl (7.5-11.1); MONO % 5.4 % (3.8-10.2); NEUT % 77.4 % (42.8-82.8); PLATELET COUNT 287 10^3/uL (134-434); RBC 4.91 M/mm3 (3.60-5.2); RDW 14.4 % (11.6-15.6); WHITE BLOOD COUNT 9.4 K/mm3 (4.0-10.0)
[2024-10-17] MEDS ORDERED: FAMOTIDINE 20 MG/50 ML IVPB 20 MG/50 ML MG IVPB ONE (19:09)
[2024-10-17 19:11] LABS: POTASSIUM 4.3 mmol/L (3.5-5.1)
[2024-10-17 19:13] LABS: CALCIUM 9.6 mg/dL (8.5-10.1)
[2024-10-17 19:14] LABS: ALBUMIN 3.8 g/dl (3.4-5.0); BLOOD UREA NITROGEN 9.1 mg/dL (7-18); MAGNESIUM 2.2 mg/dL (1.8-2.4)
[2024-10-17] MEDS: SODIUM CHLORIDE 0.9% 1000 ML INFUS.BAG IV ONE (19:14)
[2024-10-17] MEDS: FAMOTIDINE 20 MG/50 ML IVPB 20 MG/50 ML MG IVPB ONE (19:14)
[2024-10-17 19:17] LABS: CREATININE 0.8 mg/dL (0.55-1.3)
[2024-10-17 19:18] LABS: BILIRUBIN,TOTAL 0.4 mg/dL (0.2-1); TOT PROT 7.8 g/dl (6.4-8.2)
[2024-10-17] MEDS ORDERED: ACETAMINOPHEN INJECTION 100 ML ONE (21:12)
[2024-10-17] MEDS ORDERED: MAGNESIUM CITRATE 300 ML BOTTLE ONE (22:41)
[2024-10-17] MEDS: MAGNESIUM CITRATE 300 ML BOTTLE PO ONE (22:47)
[2024-10-17 23:10] LABS: PH,URINE 5.5 (5.0-8.0); URINE APPEARANCE CLEAR; URINE BILIRUBIN NEGATIVE (NEGATIVE); URINE COLOR YELLOW; URINE GLUCOSE (UA) NEGATIVE (NEGATIVE); URINE KETONE NEGATIVE (NEGATIVE); URINE LEUK ESTERASE NEGATIVE (NEGATIVE); URINE NITRITE NEGATIVE (NEGATIVE); URINE PROTEIN NEGATIVE (NEGATIVE); URINE UROBILINOGEN 0.2 mg/dL (0.2-1.0)
== END 2024-10-17 23:36 | disposition home or self-care (01) ==
LOC: JER 17:25
PROC: 3E033GC Introduction of Other Therapeutic Substance into Peripheral Vein, Percutaneous Approach (ICD-10-PCS; principal; 2024-10-17)
DX: K59.00 Constipation, unspecified (principal); R10.12 Left upper quadrant pain; R10.32 Left lower quadrant pain; R14.0 Abdominal distension (gaseous)
CPT/HCPCS: 36415; 74177-TC; 80053; 81003; 83690; 83735; 85025; 93005; 93010; 99285-25; Q9967

== ENCOUNTER 2025-01-04 21:53 | Inpatient (IN) | payer OTHER ==
[2025-01-04] MEDS ORDERED: DEXAMETHASONE SOD PHOSPHATE 10 MG/1 ML VIAL ONE (22:12)
[2025-01-04] MEDS: DEXAMETHASONE SOD PHOSPHATE 10 MG/1 ML VIAL IVPUSH ONE (22:22)
[2025-01-04] MEDS: ALBUTEROL SO4 2.5/IPRATROPIUM 0.5 INH SOL 3 ML VIAL.NEB. NEB SCH (22:22)
[2025-01-04 22:24] LABS: VENOUS BASE EXCESS 0.1 mmol/L (-2-2); VENOUS O2 SATURATION 15.8 % (70-80); VENOUS PCO2 44.5 mmHg (38-52); VENOUS PH 7.376 (7.310-7.410)
[2025-01-04 22:28] LABS: BASO % 0.5 % (0-2.0); EOS % 0.7 % (0-4.5); HEMATOCRIT 38.4 % (32.4-45.2); HEMOGLOBIN 12.7 GM/dL (10.7-15.3); LYMPH % 7.7 % (8-40); MCH 28.2 pg (25.7-33.7); MEAN CELL VOLUME 85.6 fl (80-96); NEUT % 83.1 % (42.8-82.8); PLATELET COUNT 288 10^3/uL (134-434); RBC 4.48 M/mm3 (3.60-5.2); RDW 13.4 % (11.6-15.6); WHITE BLOOD COUNT 11.7 K/mm3 (4.0-10.0)
[2025-01-04 22:48] LABS: POTASSIUM 3.9 mmol/L (3.5-5.1)
[2025-01-04 22:50] LABS: ALBUMIN 3.4 g/dl (3.4-5.0); BLOOD UREA NITROGEN 9.5 mg/dL (7-18); CALCIUM 9.2 mg/dL (8.5-10.1)
[2025-01-04 22:53] LABS: CREATININE 0.7 mg/dL (0.55-1.3)
[2025-01-04 22:55] LABS: BILIRUBIN,TOTAL 0.8 mg/dL (0.2-1)
[2025-01-04] MEDS: BUDESONIDE 0.5 MG/2 ML INH SUSP VIAL NEB ONE (22:55)
[2025-01-04 22:58] LABS: N-TERMINAL BNP 530.5 pg/ml (5-450)
[2025-01-04] MEDS ORDERED: AZITHROMYCIN IVPB 500 MG/250 ML BAG IVPB ONE (23:19)
[2025-01-04] MEDS: AZITHROMYCIN IVPB 500 MG in DEXTROSE 5%-WATER - 250 ML IVPB ONE (23:39)
[2025-01-05] MEDS: methylPREDNISolone NA SUCC 40 MG/1 ML VIAL IVPUSH SCH ×2 (01:19→10:06)
[2025-01-05] MEDS ORDERED: ALBUTEROL SO4 2.5/IPRATROPIUM 0.5 INH SOL 3 ML VIAL.NEB. NEB PRN (01:35)
[2025-01-05] MEDS: ALBUTEROL SO4 2.5/IPRATROPIUM 0.5 INH SOL 3 ML VIAL.NEB. NEB SCH (01:57)
[2025-01-05 03:30] VITALS: BMI 25.2
[2025-01-05] MEDS: IBUPROFEN 400 MG TABLET (FP) PO PRN (04:10)
[2025-01-05 05:18] LABS: EPI CELLS 5 /uL (0-25.1); HYALINE CASTS 0 /uL (0-3.1); URINE APPEARANCE CLEAR; URINE BACTERIA 6 /uL (0-1359); URINE BILIRUBIN NEGATIVE (NEGATIVE); URINE COLOR YELLOW; URINE GLUCOSE (UA) NEGATIVE (NEGATIVE); URINE KETONE 1+ (NEGATIVE); URINE LEUK ESTERASE NEGATIVE (NEGATIVE); URINE NITRITE NEGATIVE (NEGATIVE); URINE PROTEIN NEGATIVE (NEGATIVE); URINE RBC 6 /uL (0-23.9); URINE WBC 2 /uL (0-25.8)
[2025-01-05] MEDS: BUDESONIDE 0.5 MG/2 ML INH SUSP VIAL NEB SCH (07:17)
[2025-01-05 09:19] LABS: BASO % 0.2 % (0-2.0); EOS % 0.1 % (0-4.5); HEMOGLOBIN 11.7 GM/dL (10.7-15.3); LYMPH % 6.3 % (8-40); MCH 29.3 pg (25.7-33.7); MCHC 34.4 g/dl (32.0-36.0); MEAN CELL VOLUME 85.1 fl (80-96); MEAN PLT VOLUME 9.2 fl (7.5-11.1); MONO % 3.3 % (3.8-10.2); NEUT % 90.1 % (42.8-82.8); PLATELET COUNT 246 10^3/uL (134-434); RDW 13.6 % (11.6-15.6); WHITE BLOOD COUNT 10.8 K/mm3 (4.0-10.0)
[2025-01-05] MEDS: LISINOPRIL 20 MG TABLET PO SCH (10:06)
[2025-01-05] MEDS: ENOXAPARIN NA (PORCINE) 40 MG/0.4 ML DISP.SYRIN SQ SCH (10:06)
[2025-01-05] MEDS: PANTOPRAZOLE 40 MG TABLET PO SCH (10:06)
[2025-01-05 10:42] LABS: POTASSIUM 4.1 mmol/L (3.5-5.1)
[2025-01-05 10:44] LABS: ALBUMIN 2.9 g/dl (3.4-5.0); BLOOD UREA NITROGEN 10.6 mg/dL (7-18); MAGNESIUM 2.2 mg/dL (1.8-2.4)
[2025-01-05 10:47] LABS: CREATININE 0.6 mg/dL (0.55-1.3)
[2025-01-05 10:48] LABS: PHOSPHOROUS 4.6 mg/dL (2.5-4.9)
[2025-01-05 10:49] LABS: BILIRUBIN,TOTAL 0.5 mg/dL (0.2-1); TOT PROT 7.2 g/dl (6.4-8.2)
[2025-01-05 12:13] LABS: HIV INTERPRETATION NEGATIVE (NEGATIVE)
[2025-01-05] MEDS ORDERED: POLYETHYLENE GLYCOL (HEALTHYLAX) 3350 17 GM PACKET PO PRN (12:14)
[2025-01-05] MEDS: ATORVASTATIN CA 10 MG TABLET (FP) PO SCH (21:28)
[2025-01-05] MEDS: AZITHROMYCIN IVPB 500 MG/250 ML BAG IVPB SCH (21:29)
[2025-01-06] MEDS: MELATONIN 5 MG TABLETS PO ONE (01:03)
[2025-01-06 08:35] LABS: HEMATOCRIT 35.8 % (32.4-45.2); HEMOGLOBIN 11.9 GM/dL (10.7-15.3); MCH 28.3 pg (25.7-33.7); MCHC 33.2 g/dl (32.0-36.0); MEAN CELL VOLUME 85.2 fl (80-96); MEAN PLT VOLUME 8.9 fl (7.5-11.1); PLATELET COUNT 362 10^3/uL (134-434); RDW 13.4 % (11.6-15.6); WHITE BLOOD COUNT 17.2 K/mm3 (4.0-10.0)
[2025-01-06 08:50] LABS: POTASSIUM 4.1 mmol/L (3.5-5.1)
[2025-01-06 08:55] LABS: CALCIUM 9.2 mg/dL (8.5-10.1)
[2025-01-06 08:56] LABS: ALBUMIN 3.1 g/dl (3.4-5.0); BLOOD UREA NITROGEN 13.6 mg/dL (7-18)
[2025-01-06 08:59] LABS: CREATININE 0.8 mg/dL (0.55-1.3)
[2025-01-06 09:00] LABS: BILIRUBIN,TOTAL 0.4 mg/dL (0.2-1); TOT PROT 7.4 g/dl (6.4-8.2)
[2025-01-07 08:59] LABS: HEMATOCRIT 35.2 % (32.4-45.2); HEMOGLOBIN 11.2 GM/dL (10.7-15.3); MCH 27.5 pg (25.7-33.7); MCHC 31.7 g/dl (32.0-36.0); MEAN CELL VOLUME 86.7 fl (80-96); MEAN PLT VOLUME 9.3 fl (7.5-11.1); PLATELET COUNT 307 10^3/uL (134-434); RBC 4.06 M/mm3 (3.60-5.2); RDW 13.4 % (11.6-15.6); WHITE BLOOD COUNT 14.3 K/mm3 (4.0-10.0)
[2025-01-07 09:05] LABS: POTASSIUM 4.6 mmol/L (3.5-5.1)
[2025-01-07 09:09] LABS: CALCIUM 8.6 mg/dL (8.5-10.1)
[2025-01-07 09:10] LABS: ALBUMIN 2.6 g/dl (3.4-5.0); BLOOD UREA NITROGEN 16.5 mg/dL (7-18)
[2025-01-07 09:13] LABS: CREATININE 0.6 mg/dL (0.55-1.3)
[2025-01-07 09:14] LABS: BILIRUBIN,TOTAL 0.7 mg/dL (0.2-1); TOT PROT 6.2 g/dl (6.4-8.2)
[2025-01-07] MEDS: methylPREDNISolone NA SUCC 40 MG/1 ML VIAL IVPUSH SCH (11:46)
[2025-01-08 11:54] LABS: ABSOLUTE IMMATURE GRANULOCYTES 0.96 x10^3/uL (0.0-0.031); HEMATOCRIT 38.9 % (34.1-44.9); HEMOGLOBIN 12.2 g/dL (11.2-15.7); MCHC 31.4 g/dl (32.2-35.5); MEAN CELL VOLUME 88.4 fl (79.4-94.8); MEAN PLT VOLUME 10.9 fl (9.4-12.3); PLATELET COUNT # 398 x10^3/uL (182-369); RDW 13.1 % (12.4-16.6)
[2025-01-08 12:06] LABS: POTASSIUM 4.1 mmol/L (3.5-5.1)
[2025-01-08 12:09] LABS: POTASSIUM 4.2 mmol/L (3.5-5.1)
[2025-01-08 12:10] LABS: MAGNESIUM 2.1 mg/dL (1.8-2.4)
[2025-01-08 12:12] LABS: ALBUMIN 2.9 g/dl (3.4-5.0); BLOOD UREA NITROGEN 13.9 mg/dL (7-18); CALCIUM 8.5 mg/dL (8.5-10.1); CALCIUM 8.6 mg/dL (8.5-10.1)
[2025-01-08 12:13] LABS: ALBUMIN 2.9 g/dl (3.4-5.0); BLOOD UREA NITROGEN 13.8 mg/dL (7-18)
[2025-01-08 12:14] LABS: CREATININE 0.7 mg/dL (0.55-1.3)
[2025-01-08 12:15] LABS: BILIRUBIN,TOTAL 0.3 mg/dL (0.2-1)
[2025-01-08 12:16] LABS: CREATININE 0.7 mg/dL (0.55-1.3); TOT PROT 6.5 g/dl (6.4-8.2)
[2025-01-08 12:17] LABS: BILIRUBIN,TOTAL 0.2 mg/dL (0.2-1); TOT PROT 6.5 g/dl (6.4-8.2)
[2025-01-08 13:02] LABS: HCV DIAGNOSTIC IN-HOUSE W/RFLX NON-REACTIVE (NONREACTIVE)
[2025-01-08 22:10] VITALS: RESP 18
[2025-01-09 02:10] LABS: FIBROSIS SCORE. 0.18 (0.00-0.21); HCV ALPHA 2 MACRO CHART 281 mg/dL (110-276); NECRO.INFLAM ACT.SCORE 0.23 (0.00-0.17); NECROINFLAM. ACTIVITY GRADE A0-A1 (.)
[2025-01-09 07:20] VITALS: TEMP 97.7
[2025-01-09 09:13] LABS: MCHC 32.5 g/dl (32.2-35.5); MEAN PLT VOLUME 10.4 fl (9.4-12.3); PLATELET COUNT # 404 x10^3/uL (182-369)
[2025-01-09 09:31] LABS: POTASSIUM 3.9 mmol/L (3.5-5.1)
[2025-01-09 09:34] LABS: CALCIUM 8.5 mg/dL (8.5-10.1)
[2025-01-09 09:35] LABS: ALBUMIN 2.9 g/dl (3.4-5.0); BLOOD UREA NITROGEN 10.4 mg/dL (7-18); MAGNESIUM 2.2 mg/dL (1.8-2.4)
[2025-01-09 09:38] LABS: CREATININE 0.7 mg/dL (0.55-1.3)
[2025-01-09 09:40] LABS: BILIRUBIN,TOTAL 0.4 mg/dL (0.2-1); TOT PROT 6.2 g/dl (6.4-8.2)
[2025-01-09] MEDS: POLYETHYLENE GLYCOL (HEALTHYLAX) 3350 17 GM PACKET PO SCH (09:43)
[2025-01-09] MEDS: methylPREDNISolone NA SUCC 40 MG/1 ML VIAL IVPUSH SCH (09:43)
[2025-01-09 10:33] VITALS: BP 138/70; PULSE 63
[2025-01-09 19:06] LABS: MITOCHONDRIAL AB <20.0 Units (0.0-20.0)
[2025-01-10] MEDS ORDERED: predniSONE 20 MG TABLET (UD) PO SCH (10:00)
[2025-01-11 15:07] LABS: C-ANCA <1:20 titer (Neg:<1:20)
[2025-01-13 07:06] LABS: CREATININE, UR 0.19 g/L (0.30-3.00)
== END 2025-01-09 11:49 | disposition home or self-care (01) | DRG 197 ==
LOC: JER 21:53 → JERBED 23:50 → J8W 01-05 03:33 → OBSVTOIN 01-06 17:48
PROVIDERS: ADMIT Internal Medicine; ATTEND Nurse Practitioner Acute Care
DX: J84.10 Pulmonary fibrosis, unspecified (principal); J44.0 Chronic obstructive pulmonary disease with (acute) lower respiratory infection; J96.11 Chronic respiratory failure with hypoxia; J44.1 Chronic obstructive pulmonary disease with (acute) exacerbation; M81.0 Age-related osteoporosis without current pathological fracture; R74.01 Elevation of levels of liver transaminase levels; I27.20 Pulmonary hypertension, unspecified; K59.00 Constipation, unspecified; D72.829 Elevated white blood cell count, unspecified; R79.89 Other specified abnormal findings of blood chemistry
CPT/HCPCS: 0241U-QW; 36415; 71045-TC-FY; 71250-TC; 74176-TC; 74181-TC; 76705-TC; 80053; 81003; 82172; 82390; 82525; 82550; 82570; 82728; 82803; 82977; 83010; 83516; 83520; 83540; 83550; 83690; 83735; 83880; 83883; 84100; 84460; 84484; 85025; 85027; 86038; 86256; 86704; 86705; 86708; 86709; 86803; 87340; 87389; 87517; 93005; 93010; 93306-TC; 94640; 99285-25; G0378; J1100